=== PATIENT | male | born 1955 | race Two or more races ===

== ENCOUNTER 2020-11-14 12:45 | Outpatient (REF) | payer MEDICARE, MEDICAID, SELFPAY | END 2020-11-14 12:46 | disposition home or self-care (01) | LOC: HO.LAB 12:45 | PROVIDERS: PCP Internal Medicine; Visit Provider Internal Medicine | DX: Z20.822 Contact with and (suspected) exposure to COVID-19 (principal) | CPT/HCPCS: 36415; C9803; U0003; U0005 ==

== ENCOUNTER 2020-11-25 14:39 | Outpatient (REF) | payer MEDICARE, MEDICAID, SELFPAY | END 2020-11-25 14:40 | disposition home or self-care (01) | LOC: HO.LAB 14:39 | PROVIDERS: PCP Internal Medicine; Visit Provider Internal Medicine | DX: Z20.822 Contact with and (suspected) exposure to COVID-19 (principal) | CPT/HCPCS: 36415; C9803; U0003; U0005 ==

== ENCOUNTER → 2020-12-08 12:52 | Outpatient (BNVA) | payer MEDICARE, MEDICAID, SELFPAY | PROVIDERS: PCP Internal Medicine; Visit Provider Physician Assistant | DX: K63.5 Polyp of colon (principal); K21.9 Gastro-esophageal reflux disease without esophagitis | CPT/HCPCS: 99212 ==

== ENCOUNTER 2021-01-01 10:11 | Day surgery (SDC) | payer MEDICARE, MEDICAID, SELFPAY ==
[2020-12-24 20:48] VITALS: BMI 38.2
--- NOTE | 2020-12-31 10:00 | P.CONAN_ITS ---
HPI - Anesthesia Eval Consult details Narrative: 65yo M for Upper Endoscopy [facility] Active Problems Active Problems: All Active Problems (Updated 12/08/20 @ 14:12 by Berenice Dent PA-C) Colon polyps (Acute) Cervical stenosis of spine (Acute) BPH (benign prostatic hyperplasia) (Acute) Pure hypercholesterolemia (Acute) GERD (gastroesophageal reflux disease) (Acute) Past Medical History Medical History BPH (benign prostatic hyperplasia) Cervical stenosis of spine Colon polyps GERD (gastroesophageal reflux disease) Pure hypercholesterolemia Family History Family History Father Diabetes Mother Hypertension Maternal Grandmother Diabetes Paternal Grandmother Stroke Surgical History Surgical History History of appendectomy History of bunionectomy History of umbilical hernia repair Social History Social History Household Members: Family Alcohol intake: current Alcohol intake frequency: holidays/special occasions only Smoking Status: Never smoker Current occupational status: retired [employer] Allergies Allergy/AdvReac Type Severity Reaction Status Date / Time No Known Allergies Allergy Verified 12/01/20 13:06 Home Medications Medication Instructions Recorded Confirmed Last Taken Type cetirizine 10 mg tablet 10 mg PO BID 07/24/20 12/24/20 Unknown History timolol maleate 0.5 % eye drops 1 drp OPHTHALMIC (EYE) DAILY 07/24/20 12/24/20 Unknown History tamsulosin 0.4 mg capsule 0.4 mg PO BEDTIME 12/01/20 12/24/20 Unknown History Exam Exam Date and Time: December 31, 2020 1000 Height,Weight and Vital Signs: Height 6 ft Weight 127.913 kg Assessment and Plan Assessment Anesthesia Assessment: Chart Reviewed
[2021-01-01 10:41] VITALS: BP 141/89; PULSE 67; RESP 18; TEMP 36.4; O2SAT 99
[2021-01-01] MEDS: Lactated Ringers 1,000 ML 100 ML IVCONT (11:00)
--- NOTE | 2021-01-01 15:29 | MHC.SHP ---
Pre-Procedural Eval Section B Chief Complaint: reflux disease Relevant Family History (Specify if Yes): No Relevant Social History: None Present Medications: see Short Stay Collaborative assessment Medical History: Significant History (BPH (benign prostatic hyperplasia) Cervical stenosis of spine Colon polyps GERD (gastroesophageal reflux disease) Pure hypercholesterolemia) History of Previous Operations: Relevant previous surgery/procedure and date(s) (History of appendectomy History of bunionectomy History of umbilical hernia repair) Allergies: Allergies Allergy/AdvReac Type Severity Reaction Status Date / Time No Known Allergies Allergy Verified 12/01/20 13:06 Review of Systems Sugical H&P ROS: Negative: Constitution, Cardiovascular, Respiratory, Neurological, Psychiatric, Hem-Onc, Allergic/Immunologic, Gastrointestinal, Genitourinary, Musculoskeletal, Integumentary, Endocrine and Eyes/Ears/Nose/Throat Exam Surgical H&P Exam: Normal: HEENT, Normal: Heart, Normal: Lungs, Normal: Extremities, Normal: Abdomen, Normal: Skin and Normal: Neurological Plan Diagnosis/Plan: Unchanged I have reviewed the history and physical and performed a pertinent physical examination on my patient. No changes have occurred unless specified.
--- NOTE | 2021-01-01 15:32 | PM.OP ---
Brief Operative Note Date of Service: 01/01/21 Pre-op diagnosis: GERD, Post-op diagnosis: same Procedure: see op note Surgeon: Kecia Leal MD Anesthesia: MAC Estimated blood loss (mL): 0 Condition: stable Disposition: PACU
--- NOTE | 2021-01-01 15:32 | W.PM.OPN ---
Operative Note Operative Note Date of Service: 01/01/21 Narrative: Procedure Description: EGD FLEXIBLE TRANSORAL UPPER GASTROINTESTINAL ENDOSCOPY UPPER ENDOSCOPY Consent: Indications for the procedure and potential complications of bleeding, perforation, reaction to medications and missed diagnosis were discussed with the patient and informed consent was obtained. Instrument: Olympus GIF H 190 J mid size upper endoscope Monitoring: Vital signs and clinical assessment, continuous EKG monitoring, Pulse oximetry, Carbon Dioxide monitoring and blood pressure monitoring were done throughout the procedure. Procedure: The patient was placed in the left lateral decubitis position and pre-procedure medications were administered and a bite block was placed. The endoscope was inserted into the mouth and advanced under direct vision to the third part of duodenum. A careful inspection was made as the upper endoscope was withdrawn including a retroflexed examination of the proximal stomach; Findings and interventions are described below. Findings: Larynx:normal Esophagus: GE junction at 38 cm, diaphragm hiatus at 40 cm, 2 cm sliding hiatal hernia noted, rando esophagus bx taken Stomach: Patchy gastric erythema [place] in proximal body and fundus. Biopsies were obtained. Grade 2 flap valve on retroflexed examination of the cardia. Duodenum: Normal bulb and descending duodenum Intervention: Biopsies as noted above Impression/Findings: hiatal hernia gastritis PLAN: await bx, if h pylori pos then treat check nsaid hx consider changing PPI if current one not working
[2021-01-01 15:54] VITALS: BP 105/68; PULSE 91; RESP 20; TEMP 36.5; O2SAT 94
[2021-01-01 16:09] VITALS: BP 108/77; PULSE 90; RESP 20; O2SAT 97
[2021-01-01 16:23] VITALS: BP 122/69; PULSE 79; RESP 20; O2SAT 98
== END 2021-01-01 17:20 | disposition home or self-care (01) ==
PROVIDERS: PCP Internal Medicine; Visit Provider Internal Medicine Gastroenterology
PROC: 0DJ08ZZ Inspection of Upper Intestinal Tract, Via Natural or Artificial Opening Endoscopic (ICD-10-PCS; CPT 43235; principal; 2021-01-01 14:10)
DX: K21.00 Gastro-esophageal reflux disease with esophagitis, without bleeding (principal); K29.50 Unspecified chronic gastritis without bleeding; B96.81 Helicobacter pylori [H. pylori] as the cause of diseases classified elsewhere; K44.9 Diaphragmatic hernia without obstruction or gangrene; Z79.899 Other long term (current) drug therapy
CPT/HCPCS: 43239; 88305; 88342

== ENCOUNTER → 2021-01-30 11:08 | Outpatient (BNVA) | payer MEDICARE, MEDICAID, SELFPAY | PROVIDERS: PCP Internal Medicine; Visit Provider Internal Medicine Gastroenterology | DX: R10.13 Epigastric pain (principal) | CPT/HCPCS: 99212 ==

== ENCOUNTER 2021-03-03 07:48 | Outpatient (REF) | payer MEDICARE, MEDICAID, SELFPAY ==
--- NOTE | ~2021-03-03 | XR_ITS ---
EXAMINATION: XR KNEE, LEFT CLINICAL INFORMATION: Pain. COMPARISON: None TECHNIQUE: Four views of the left knee. FINDINGS: The tricompartment joint space is maintained normal. There is tiny spurs seen along the inferior patella and medial anterior femoral condyle. No loose bodies or bony erosive changes seen. No visible acute fracture, dislocation or lytic process seen. The soft tissues are normal. XR/XR knee LT 4V IMPRESSION: Unremarkable left knee exam.
[2021-03-03 09:07] LABS: Alanine Aminotransferase 30 U/L (0-40); Albumin Level 4.1 g/dL (3.5-5.0); Alkaline Phosphatase 76 U/L (39-117); Anion Gap 11 (12-20); Aspartate Amino Transferase 32 U/L (5-37); Bilirubin Total 0.8 mg/dL (0.0-1.0); Blood Urea Nitrogen 12 mg/dL (9-16); Calcium 9.3 mg/dL (8.4-10.2); Carbon Dioxide 28 mmol/L (22-29); Chloride 107 mmol/L (96-108); Cholesterol 209 mg/dL; Estimated Glomerular Filt Rate > 60; Glucose Fasting 104 mg/dL (60-99); HDL Cholesterol 55 mg/dL; LDL Cholesterol Calculated 135 mg/dl; Sodium 142 mmol/L (135-145); Total Protein 6.7 g/dL (6.5-8.0); Triglycerides 98 mg/dL
[2021-03-03 09:55] LABS: PSA,Total (Free>4and<10) 2.77 ng/mL (0.00-4.00)
== END 2021-03-03 07:49 | disposition home or self-care (01) ==
LOC: HO.LAB 07:48
PROVIDERS: Absent Provider Internal Medicine; PCP Internal Medicine; Visit Provider Nurse Practitioner Family
DX: N40.0 Benign prostatic hyperplasia without lower urinary tract symptoms (principal); E78.5 Hyperlipidemia, unspecified; E78.00 Pure hypercholesterolemia, unspecified; M25.562 Pain in left knee; Z12.5 Encounter for screening for malignant neoplasm of prostate
CPT/HCPCS: 36415; 73564; 80053; 80061; 84153

== ENCOUNTER 2021-03-18 14:48 | Outpatient (REF) | payer MEDICARE, MEDICAID, SELFPAY | END 2021-03-18 14:49 | disposition home or self-care (01) | LOC: HO.LAB 14:48 | PROVIDERS: PCP Internal Medicine; Visit Provider Internal Medicine | DX: Z20.822 Contact with and (suspected) exposure to COVID-19 (principal) | CPT/HCPCS: C9803; U0003; U0005 ==

== ENCOUNTER 2021-06-08 09:01 | Outpatient (REF) | payer MEDICARE, MEDICAID, SELFPAY ==
--- NOTE | ~2021-06-08 | XR_ITS ---
EXAMINATION: XR KNEE, RIGHT CLINICAL INFORMATION: Knee pain. COMPARISON: 05/25/2016 x-ray. TECHNIQUE: 4 views of the right knee. FINDINGS: Normal alignment. Small osteophyte in the medial femoral condyle. Small lateral osteophyte. Joint spaces are maintained. No fracture or dislocation. No significant effusion. XR/XR knee RT 2V IMPRESSION: Small degenerative marginal osteophytes, described above. No visible acute findings.
[2021-06-08 10:21] LABS: MANUAL DIFF FLAG NO
[2021-06-08 10:28] LABS: Basophils Percent Auto 0.2 % (0-2); Eosinophils Absolute Auto 0.3 X10*3/uL (0.0-0.4); Eosinophils Percent Auto 4.6 % (0-4); Hematocrit 37.6 % (42-52); Hemoglobin 12.7 g/dl (14.0-18.0); Imm Gran Abs Auto 0.01 X10*3/uL (0.00-0.03); Imm Gran Pct Auto 0.2 % (0.0-0.4); Lymphocytes Absolute Auto 1.9 X10*3/uL (1.2-4.9); Lymphocytes Percent Auto 31.9 % (20-40); Mean Corpuscular HGB Conc 33.8 g/dl (31.0-36.0); Mean Corpuscular Hemoglobin 29.3 pg (27.0-33.0); Mean Corpuscular Volume 86.6 fL (80-98); Monocytes Absolute Auto 0.5 X10*3/uL (0.1-1.2); Monocytes Percent Auto 8.8 % (2-11); Neutrophils Absolute Auto 3.2 X10*3/uL (2.0-8.3); Neutrophils Percent Auto 54.3 % (45-73); Platelet Count 184 X10*3/uL (160-400); Red Blood Count 4.34 X10*6/uL (4.60-5.80); White Blood Count 5.9 X10*3/uL (4.8-10.8)
[2021-06-08 11:16] LABS: PSA,Total (Free>4and<10) 3.47 ng/mL (0.00-4.00)
[2021-06-08 11:17] LABS: Alanine Aminotransferase 21 U/L (0-40); Albumin Level 4.1 g/dL (3.5-5.0); Alkaline Phosphatase 73 U/L (39-117); Anion Gap 12 (12-20); Aspartate Amino Transferase 22 U/L (5-37); Bilirubin Total 0.7 mg/dL (0.0-1.0); Blood Urea Nitrogen 10 mg/dL (9-16); Calcium 9.3 mg/dL (8.4-10.2); Carbon Dioxide 25 mmol/L (22-29); Chloride 109 mmol/L (96-108); Cholesterol 212 mg/dL; Estimated Glomerular Filt Rate > 60; Glucose Fasting 98 mg/dL (60-99); HDL Cholesterol 53 mg/dL; LDL Cholesterol Calculated 140 mg/dl; Potassium 4.3 mmol/L (3.3-5.1); Sodium 142 mmol/L (135-145); Triglycerides 99 mg/dL
[2021-06-11 18:11] LABS: Vitamin D 25-OH, D2 <4 ng/mL; Vitamin D 25-OH, D3 21 ng/mL; Vitamin D 25-OH, Total 21 ng/mL (30-100)
== END 2021-06-08 09:02 | disposition home or self-care (01) ==
LOC: HO.LAB 09:01
PROVIDERS: PCP Internal Medicine; Visit Provider Internal Medicine
DX: Z12.5 Encounter for screening for malignant neoplasm of prostate (principal); E78.00 Pure hypercholesterolemia, unspecified; D64.9 Anemia, unspecified; K21.9 Gastro-esophageal reflux disease without esophagitis; E55.9 Vitamin D deficiency, unspecified; E78.5 Hyperlipidemia, unspecified; M25.561 Pain in right knee
CPT/HCPCS: 36415; 73560; 80053; 80061; 82306; 84153; 85025

== ENCOUNTER 2021-08-31 10:45 | Outpatient (REF) | payer MEDICARE, MEDICAID, SELFPAY ==
[2021-09-01 15:32] LABS: H Pylori Breath Test Positive (Negative)
== END 2021-08-31 10:46 | disposition home or self-care (01) ==
LOC: HO.LAB 10:45
PROVIDERS: PCP Internal Medicine; Referring Provider Internal Medicine; Visit Provider Internal Medicine Gastroenterology
DX: K21.9 Gastro-esophageal reflux disease without esophagitis (principal); A04.8 Other specified bacterial intestinal infections
CPT/HCPCS: 36415; 83013; 99212

== ENCOUNTER 2021-09-02 07:17 | Outpatient (REF) | payer MEDICARE, MEDICAID, SELFPAY ==
[2021-09-02 08:47] LABS: Alanine Aminotransferase 18 U/L (0-40); Albumin Level 4.1 g/dL (3.5-5.0); Alkaline Phosphatase 74 U/L (39-117); Anion Gap 13 (12-20); Aspartate Amino Transferase 18 U/L (5-37); Bilirubin Total 0.4 mg/dL (0.0-1.0); Blood Urea Nitrogen 10 mg/dL (9-16); Calcium 9.3 mg/dL (8.4-10.2); Carbon Dioxide 27 mmol/L (22-29); Chloride 108 mmol/L (96-108); Cholesterol 199 mg/dL; Estimated Glomerular Filt Rate > 60; Glucose Fasting 102 mg/dL (60-99); HDL Cholesterol 50 mg/dL; LDL Cholesterol Calculated 136 mg/dl; Potassium 4.5 mmol/L (3.3-5.1); Sodium 143 mmol/L (135-145); Triglycerides 68 mg/dL
== END 2021-09-02 07:18 | disposition home or self-care (01) ==
LOC: HO.LAB 07:17
PROVIDERS: PCP Internal Medicine; Visit Provider Internal Medicine
DX: R10.13 Epigastric pain (principal); E78.5 Hyperlipidemia, unspecified
CPT/HCPCS: 36415; 80053; 80061

== ENCOUNTER 2022-02-11 07:03 | Outpatient (REF) | payer MEDICARE, MEDICAID, SELFPAY ==
[2022-02-11 07:24] LABS: MANUAL DIFF FLAG NO
[2022-02-11 07:31] LABS: Basophils Percent Auto 0.4 % (0-2); Eosinophils Absolute Auto 0.3 X10*3/uL (0.0-0.4); Eosinophils Percent Auto 5.4 % (0-4); Hematocrit 35.8 % (42.0-52.0); Hemoglobin 12.3 g/dl (14.0-18.0); Imm Gran Abs Auto 0.02 X10*3/uL (0.00-0.03); Imm Gran Pct Auto 0.4 % (0.0-0.4); Lymphocytes Absolute Auto 2.3 X10*3/uL (1.2-4.9); Lymphocytes Percent Auto 43.5 % (20-40); Mean Corpuscular HGB Conc 34.4 g/dl (31.0-36.0); Mean Corpuscular Hemoglobin 29.6 pg (27.0-33.0); Mean Corpuscular Volume 86.1 fL (80.0-98.0); Mean Platelet Volume 10.3 fL (9.4-12.4); Monocytes Absolute Auto 0.5 X10*3/uL (0.1-1.2); Neutrophils Absolute Auto 2.1 x10*3/uL (2.0-8.3); Neutrophils Percent Auto 40.3 % (45-73); Platelet Count 181 X10*3/uL (160-400); Red Blood Count 4.16 X10*6/uL (4.60-5.80); Red Cell Distribution Width 14.4 % (11.0-16.0); White Blood Count 5.2 X10*3/uL (4.8-10.8)
[2022-02-11 07:51] LABS: Alanine Aminotransferase 18 U/L (0-40); Albumin Level 4.1 g/dL (3.5-5.0); Alkaline Phosphatase 74 U/L (39-117); Anion Gap 12 (12-20); Aspartate Amino Transferase 20 U/L (5-37); Bilirubin Total 0.7 mg/dL (0.0-1.0); Blood Urea Nitrogen 11 mg/dL (9-16); Calcium 9.5 mg/dL (8.4-10.2); Carbon Dioxide 25 mmol/L (22-29); Chloride 108 mmol/L (96-108); Cholesterol 189 mg/dL; Estimated Glomerular Filt Rate > 60; Glucose Fasting 103 mg/dL (60-99); HDL Cholesterol 47 mg/dL; LDL Cholesterol Calculated 132 mg/dl; Potassium 4.1 mmol/L (3.3-5.1); Sodium 141 mmol/L (135-145); Total Protein 6.9 g/dL (6.5-8.0); Triglycerides 53 mg/dL
[2022-02-11 08:11] LABS: Vitamin D 25-OH Total 20.3 ng/mL (>30)
== END 2022-02-11 07:04 | disposition home or self-care (01) ==
LOC: HO.LAB 07:03
PROVIDERS: PCP Internal Medicine; Visit Provider Internal Medicine
DX: E66.9 Obesity, unspecified (principal); Z68.30 Body mass index [BMI] 30.0-30.9, adult; E55.9 Vitamin D deficiency, unspecified
CPT/HCPCS: 36415; 80053; 80061; 82306; 85025

== ENCOUNTER 2022-02-12 11:14 | Outpatient (REF) | payer MEDICARE, MEDICAID, SELFPAY ==
--- NOTE | ~2022-02-12 | XR_ITS ---
EXAMINATION: XR KNEE, RIGHT CLINICAL INFORMATION: Pain COMPARISON: Previous x-ray May 2021 TECHNIQUE: Three views of the right knee. FINDINGS: Bone alignment is normal. No fracture or dislocation is seen. There is mild degenerative meniscal calcification. Joint spaces are otherwise normal. There is no joint effusion. XR/XR knee RT 3V IMPRESSION: Degenerative meniscal calcification.
== END 2022-02-12 11:15 | disposition home or self-care (01) ==
LOC: HO.XRAY 11:14
PROVIDERS: PCP Internal Medicine; Visit Provider Internal Medicine
DX: M25.561 Pain in right knee (principal); M23.306 Other meniscus derangements, unspecified meniscus, right knee
CPT/HCPCS: 73562

== ENCOUNTER 2022-02-26 17:00 | Emergency (ER) | payer MEDICARE, MEDICAID, SELFPAY ==
[2022-02-26 17:03] VITALS: BP 128/85; PULSE 95; RESP 16; TEMP 36.1; O2SAT 97; BMI 31.4
--- NOTE | 2022-02-26 18:34 | ED.WOUNDLAC ---
HPI - Wound/Laceration General Chief Complaint: Wound/Laceration Stated Complaint: L thumb lac Time Seen by Provider: 02/26/22 18:33 Source: patient Mode of arrival: ambulatory Limitations: no limitations History of Present Illness HPI narrative: 67 y/o male presents to the ER for evaluation of a left thumb laceration. He was cutting sheet rock prior to arrival when he missed and hit the lateral aspect of his left thumb. He has excessive bleeding initially and came to the ER for evaluation of possible stitches. He is able to fully bend and extend the thumb, he denies any numbness or weakness. He is not on any anticoagulation or aspirin. Onset (ago): hour(s) Extremity Location: left: hand (Thumb) Place: home Patient tetanus UTD: No Context: accidental Associated symptoms: pain and other (Bleeding) Treatments prior to arrival: bandage Related Data Home Medications Medication Instructions Recorded Confirmed timolol maleate 0.5 % eye drops 0 drp OPHTHALMIC (EYE) 08/31/21 02/03/22 Previous Rx's Medication Instructions Recorded cholecalciferol (vitamin D3) 25 25 mcg PO DAILY 90 Days #90 cap 02/03/22 mcg (1,000 unit) capsule pantoprazole 40 mg tablet,delayed 40 mg PO DAILY 90 Days #90 tab 02/03/22 release Allergies Allergy/AdvReac Type Severity Reaction Status Date / Time No Known Allergies Allergy Verified 02/26/22 17:08 Review of Systems Review of Systems: Constitutional: No Fever, No Chills ENT/Mouth: No sore throat, No Rhinorrhea, No Swallowing Difficulty, +Tongue laceration, No dental trauma Respiratory: No Cough, No Sputum Gastrointestinal: No Nausea, No Vomiting Musculoskeletal: No joint pain, No Myalgias Skin: No Skin Lesions, No rash Neuro: No Weakness, No Numbness, No Dizziness, No Headache Psych: + Anxiety/Panic, No Depression Heme/Lymph: No Bruising PMFSH Past Medical History Medical History Abdominal distention BPH (benign prostatic hyperplasia) Cervical stenosis of spine Class 1 obesity with body mass index (BMI) of 30.0 to 30.9 in adult Colon polyps GERD (gastroesophageal reflux disease) Hypovitaminosis D Left knee pain Pure hypercholesterolemia Right knee pain Surgical History History of appendectomy History of bunionectomy History of esophagogastroduodenoscopy (EGD) History of umbilical hernia repair Family History Family History Father Diabetes Mother Hypertension Maternal Grandmother Diabetes Paternal Grandmother Stroke Social History Social History Household Members: Family Household Members Other:: lives with mother Housing: House Alcohol intake: current Alcohol intake frequency: holidays/special occasions only Alcohol type: beer Patient Tobacco Use Status: Never used Tobacco e-Cigarette/Vaping Use: Never Used Second Hand Smoke Exposure: No Advance Directives: No Advance Directives Information Provided: No service: No Current occupational status: retired Cognitive needs: No Hearing needs: No Vision needs: No Physical Exam Vital Signs: Vital Signs: Last Vital Signs Temp 97 F 02/26/22 17:03 Pulse 95 02/26/22 17:03 Resp 16 02/26/22 17:03 BP 128/85 02/26/22 17:03 Pulse Ox 97 02/26/22 17:03 BMI result Body Mass Index 31.4 Appearance: Alert. Oriented X3. No acute distress. HEENT: normal inspection CVS: Normal heart rate and rhythm. Pulses normal. Respiratory: No respiratory distress. Skin: Skin warm and dry. Normal skin color. Normal skin turgor. No rashes. Extremities: left thumb with 4 cm linear, superficial laceration to the lateral aspect of the thumb, active bright red losing from the proximal portion of the wound, normal range of motion of the digit, normal sensation, less than 2nd cap refill. Neuro: Oriented X 3. Nonfocal. Course Course Course Narrative: 67-year-old male presents to the ER for evaluation of a superficial laceration to his left thumb. Laceration is approximately 4 cm long, superficial, active bright red blood oozing from the proximal aspect, most likely small arteriolel is actively bleeding. Direct pressure was applied with some improvement. Area was anesthetized with 2% lidocaine with good effect and sutures were placed to approximate wound edges and adequate hemostasis was achieved. Patient tolerated procedure well. Wound care discussed, patient is stable for discharge home. Procedures Laceration Laceration 1: Site: hand Side (If applicable): left Size (cm): 4 Description: linear Depth: simple, single layer Local Anesthetic: lidocaine 2% Amount of anesthesia used (mL): 4 Pre-repair: wound explored, irrigated extensively and deep structures intact Skin layer closed with: nylon Size (cm): 4-0 Number of sutures: 6 Technique: simple, interrupted Discharge Plan Discharge Clinical Impression: Laceration of left thumb Patient Disposition: Home, Self-Care Instructions: Finger Laceration (ED) Additional Instructions: You will need your stitches out in 7- 10 days. See you doctor for this or come back to the ER and we will remove them. Do not get wet for 24 hours, after that you can briefly wash with soap and water then pat dry. Use bacitracin 2x per day. Keep wound clean and covered. Allow open to air for a few hours per day. Do not submerge in water, no swimming, no dishes. If you develop signs of infection including increased pain, swelling, redness or drainage of pus come back to the ER for further evaluation. Prescriptions: No Action cholecalciferol (vitamin D3) 25 mcg (1,000 unit) capsule 25 mcg PO DAILY 90 Days Qty: 90 3RF pantoprazole 40 mg tablet,delayed release (DR/EC) 40 mg PO DAILY 90 Days Qty: 90 3RF timolol maleate 0.5 % drops 0 drp ophthalmic (eye) 0RF Interventions: ED Discharge Assessment Last Done: 02/26/22 19:30 Discharge Date/Time: 02/26/22 19:31 Print Language: Bengali
[2022-02-26] MEDS: Diphth,Pertus(ACell),Tet Adult 0.5 ML SYRINGE IM (19:22)
[2022-02-26] MEDS: Lidocaine HCl 2 % MPF 5 ML VIAL SUBCUT (19:22)
== END 2022-02-26 19:31 | disposition home or self-care (01) ==
PROVIDERS: Emergency Provider Internal Medicine; PCP Internal Medicine
DX: S61.012A Laceration without foreign body of left thumb without damage to nail, initial encounter (principal); W45.8XXA Other foreign body or object entering through skin, initial encounter; Y93.9 Activity, unspecified; Y92.9 Unspecified place or not applicable; Y99.9 Unspecified external cause status
CPT/HCPCS: 12002; 90471; 90715; 99282; 99284

== ENCOUNTER 2022-03-01 08:46 | Outpatient (REF) | payer MEDICARE, MEDICAID, SELFPAY ==
--- NOTE | ~2022-03-01 | US_ITS ---
EXAMINATION: US COMPLETE ABDOMEN WITH LIVER ELASTOGRAPHY CLINICAL INFORMATION: COMPARISON: None. TECHNIQUE: Real-time imaging of the abdominal viscera. Noninvasive ultrasound liver fibrosis assessment is performed using Meryl ElastPQ point quantification shear wave elastography (2D-SWE) with a C5-2 MHz transducer. Multiple elastography samples are obtained. FINDINGS: PANCREAS: Normal. ABDOMINAL AORTA: The proximal, middle, and distal aortic segments are normal in caliber. INFERIOR VENA CAVA: Visualized portions are normal. LIVER: Normal. The liver demonstrates normal size, contour and echogenicity. No focal lesion or intrahepatic biliary duct dilatation. The right lobe measures 14 cm in length. The left lobe measures 10 cm in length. Portal flow is normal/hepatopedal Shear wave liver elastography median stiffness is 1.5 m/s (reference: normal median stiffness is 1.3 m/s or less). IQR/median stiffness to assess sampling precision is 0.12 (reference: good quality data set is IQR/median stiffness of 0.15 or less). GALLBLADDER: Normal. The gallbladder is physiologically distended without evidence of stones, sludge, polyps, wall thickening or pericholecystic fluid. COMMON BILE DUCT: Normal in caliber measuring 0.5 cm in diameter. RIGHT KIDNEY: Normal. No hydronephrosis. No renal calculi or focal parenchymal lesions. The kidney measures 12.3 cm in maximum dimension. LEFT KIDNEY: Normal. No hydronephrosis. No renal calculi or focal parenchymal lesions. The kidney measures 12.5 cm in maximum dimension. SPLEEN: Normal. The spleen measures 9.1 cm in maximum dimension. FREE FLUID: None. US/US abdomen comp w elastography IMPRESSION: 1. Impression: Unremarkable exam. 2. Liver elastography: Adequate liver sampling. In the absence of other known clinical signs, rules out compensated advanced chronic liver disease. REFERENCE: Society of Radiologists in Ultrasound Liver Stiffness Thresholds (2020): LIVER STIFFNESS THRESHOLDS: *Liver Stiffness equal or less than 1.3 m/s: High probability of being normal. *Liver Stiffness less than 1.7 m/s: In the absence of other known clinical signs, rules out compensated advanced chronic liver disease. *Liver Stiffness 1.7-2.1 m/s: Suggestive of compensated advanced chronic liver disease but need further test for confirmation. *Liver Stiffness over 2.1 m/s: Rules in compensated advanced chronic liver disease. *Liver Stiffness over 2.4 m/s: Suggestive of clinically significant portal hypertension. QUALITY OF DATA SET: *IQR/Median value equal or less than 0.15 implies a quality data set. *IQR/Median value over 0.15 implies a poor quality data set. SIGNIFICANT CHANGE FROM PRIOR EXAM: Significant change if liver stiffness measurement is 10% or greater from prior exam. OTHER CONSIDERATIONS: The stage of liver fibrosis may be overestimated in the setting of acute hepatitis, liver inflammation, elevated liver function tests, hepatic vascular congestion, obstructive cholestasis, non-fasting state, and infiltrative diseases such as amyloidosis and lymphoma. In some patients with NAFLD, the liver stiffness thresholds for compensated advanced chronic liver disease may be lower. In causes other than viral hepatitis and NAFLD, liver stiffness thresholds are not well established.
== END 2022-03-01 08:47 | disposition home or self-care (01) ==
LOC: HO.US 08:46
PROVIDERS: Visit Provider Internal Medicine
DX: R14.0 Abdominal distension (gaseous) (principal)
CPT/HCPCS: 76705; 76981

== ENCOUNTER 2022-03-08 09:28 | Emergency (ER) | payer MEDICARE, MEDICAID, SELFPAY ==
[2022-03-08 09:37] VITALS: BP 130/80; PULSE 70; RESP 16; TEMP 36.6; O2SAT 96; BMI 31.4
--- NOTE | 2022-03-08 09:43 | ED_ITS ---
HPI - General Adult General Chief complaint: Wound/Laceration Stated complaint: Suture Removal Time Seen by Provider: 03/08/22 09:43 Source: patient Mode of arrival: ambulatory Limitations: no limitations History of Present Illness HPI narrative: Patient is a 67 year old male presenting to the emergency department today for a suture removal. Patient states that he was doing drywall when he cut his left thumb on 02/26 and he got sutures placed here. Patient denies any dizziness, lightheadedness, abdominal pain, nausea, vomiting, fever, chills, blurry vision, double vision, loss of vision, chest pain, difficulty breathing, shortness of breath, back pain, night sweats, pain with urination, increased urinary frequency, increased urinary urgency, blood in his urine or stool, syncope or a near syncopal episode, bowel incontinence, bladder incontinence, bowel retention, bladder retention, or any other complaints at this time. Patient denies any discharge from the sutured area. Onset (ago): day(s) Relieving factors: none Exacerbating factors: none Associated symptoms: denies other symptoms Treatments prior to arrival: none Related Data Home Medications Medication Instructions Recorded Confirmed timolol maleate 0.5 % eye drops 0 drp OPHTHALMIC (EYE) 08/31/21 02/03/22 Previous Rx's Medication Instructions Recorded cholecalciferol (vitamin D3) 25 25 mcg PO DAILY 90 Days #90 cap 02/03/22 mcg (1,000 unit) capsule pantoprazole 40 mg tablet,delayed 40 mg PO DAILY 90 Days #90 tab 02/03/22 release Allergies Allergy/AdvReac Type Severity Reaction Status Date / Time No Known Allergies Allergy Verified 03/08/22 09:39 Review of Systems Constitutional: Constitutional: Reports no additional constitutional complaints, Denies chills, Denies fever(s) and Denies night sweats Eyes: Eyes: Reports no additional eye complaints, Denies blurry vision, Denies change in vision, Denies diplopia, Denies eye discharge, Denies loss of vision and Denies eye pain ENT: Denies dizziness Cardiovascular: Cardiovascular: Reports no additional cardiovascular complaints, Denies chest pain, Denies lightheadedness, Denies Loss of Consciousness and Denies dyspnea Respiratory: Respiratory: Reports no additional respiratory complaints and Denies dyspnea Gastrointestinal: Gastrointestinal: Reports no additional gastrointestinal complaints, Denies abdominal pain, Denies melena, Denies hematochezia, Denies change in bowel habits and Denies change in stool character Genitourinary: Genitourinary: Reports no additional male genitourinary complaints, Denies hematuria, Denies oliguria, Denies difficulty urinating, Denies dysuria, Denies urinary frequency, Denies urinary hesitancy, Denies urinary incontinence and Denies urinary urgency Musculoskeletal: Musculoskeletal: Reports no additional musculoskeletal complaints, Denies numbness and Denies tingling Integumentary/Breasts: Comments: 6 4-[address] on the thumb Neurologic: Denies dizziness, Denies loss of vision, Denies numbness and Denies tingling Psychiatric: Psychiatric: Reports no additional psychiatric complaints Endocrine: Endocrine: Reports no additional endocrine complaints Hematologic/Lymphatic: Hematologic/Lymphatic: Reports no additional hematologic/lymphatic complaints Allergic/Immunologic: Allergic/Immunologic: Reports no additional allergic/immunologic complaints [facility] Past Medical History Attestation statement: The following information was validated with the patient. Source: old records reviewed Medical History Abdominal distention BPH (benign prostatic hyperplasia) Cervical stenosis of spine Class 1 obesity with body mass index (BMI) of 30.0 to 30.9 in adult Colon polyps GERD (gastroesophageal reflux disease) Hypovitaminosis D Left knee pain Pure hypercholesterolemia Right knee pain Surgical History History of appendectomy History of bunionectomy History of esophagogastroduodenoscopy (EGD) History of umbilical hernia repair Family History Family History Father Diabetes Mother Hypertension Maternal Grandmother Diabetes Paternal Grandmother Stroke Social History Social History Household Members: Family Household Members Other:: lives with mother Housing: House Alcohol intake: current Alcohol intake frequency: holidays/special occasions only Alcohol type: beer Patient Tobacco Use Status: Never used Tobacco e-Cigarette/Vaping Use: Never Used Second Hand Smoke Exposure: No Advance Directives: No Advance Directives Information Provided: No service: No Current occupational status: retired Cognitive needs: No Hearing needs: No Vision needs: No Physical Exam ED Vital Signs: Vital Signs - 24 hr 03/08/22 09:37 Temperature 98 F Pulse Rate 70 Respiratory Rate 16 Blood Pressure 130/80 Pulse Oximetry 96 BMI result Body Mass Index 31.4 Const General: cooperative, no acute distress, alert and awake Nutritional Appearance: well nourished Orientation/consciousness: patient oriented x3 Limitations: no limitations HENMT Head: Yes normal to inspection and Yes atraumatic Ears: hearing grossly normal bilaterally and external ears normal General nose exam: Normal external nose present, no nasal discharge noted and no epistaxis Face and sinus: Yes normal facial exam, No abrasion and No laceration Mouth: Normal oral and palatal mucosa present, no drooling and no muffled voice Eyes General: appearance normal, both eyes and all related structures Periorbital: periorbital findings normal Eyelids: Yes eyelids normal Conjunctivae: conjunctivae normal Pupils: Equal, round and reactive pupils present EOM: EOMs intact bilaterally Neck Neck: Yes normal visual inspection, Yes full ROM and Yes no lymphadenopathy Chest Chest palpation & inspection: normal inspection of the chest Resp Effort & Inspection: normal respiratory effort and able to speak in complete sentences Auscultation: clear to auscultation bilaterally Cardio Rate: regular rate Rhythm: regular rhythm GI Inspection: Yes normal to inspection Skin Other: 6 4-[address] along the medial aspect of the left thumb, no open areas, no warmth, no redness Neuro General: patient oriented x3 and moves all extremities Cranial nerves: Yes Equal, round and reactive pupils present Cognition (Neuro): normal cognition Motor exam (neuro): 5/5 motor strength present throughout Sensory Exam: Normal double simultaneous stimulation for sensation Coordination: [id number] test normal Extrem General: Yes normal to inspection, Yes full ROM and Yes capillary refill normal Psych Appearance: grossly normal Mental Status: mental status grossly normal Affect: normal affect Attitude: cooperative Thought process: Normal thought process present Thought content: Normal thought content present Insight: Good insight present (Psych) Procedures Procedure Narrative Procedure Narrative: 6 4-0 nylon sutures removed from the left thumb, without incident. Medical Decision Making MDM Narrative Medical decision making narrative: Patient is a 67 year old male presenting to the emergency department today for suture removal. Patient's physical exam showed 6 4-[address] on the medial aspect of the left thumb with no surrounding erythema, warmth, or drainage. Patient's sutures removed without incident. I explained my physical exam findings to the patient. I answered all questions asked by the patient. I stressed the importance of the patient taking his medication as prescribed. I stressed the importance of the patient following up with his primary care provider. I stressed the importance of the patient returning to the emergency department immediately if his symptoms were to worsen or if he were to develop any dizziness, shortness of breath, difficulty breathing, chest pain, blurry vision, loss of vision, nausea, vomiting, abdominal pain, fever, chills, back pain, or any other complaints. Patient verbalized agreement and understanding with this treatment plan and discharge. Differential Diagnosis Differential Diagnosis: suture removal Discharge Plan Discharge Clinical Impression: Visit for suture removal Patient Disposition: Home, Self-Care Instructions: Stitches Removal (ED) Additional Instructions: Follow up with your primary care provider. Return to the emergency department immediately if your symptoms worsen or if you develop any dizziness, shortness of breath, difficulty breathing, chest pain, blurry vision, loss of vision, nausea, vomiting, abdominal pain, fever, chills, back pain, or any other complaints. Prescriptions: No Action cholecalciferol (vitamin D3) 25 mcg (1,000 unit) capsule 25 mcg PO DAILY 90 Days Qty: 90 3RF pantoprazole 40 mg tablet,delayed release (DR/EC) 40 mg PO DAILY 90 Days Qty: 90 3RF timolol maleate 0.5 % drops 0 drp ophthalmic (eye) 0RF Referrals: Dimple Mcbride MD [Primary Care Provider] - Print Language: Bulgarian
== END 2022-03-08 09:56 | disposition home or self-care (01) ==
PROVIDERS: Emergency Provider Emergency Medicine; PCP Internal Medicine
DX: Z48.02 Encounter for removal of sutures (principal)
CPT/HCPCS: 99283

== ENCOUNTER 2022-03-09 07:43 | Outpatient (REF) | payer MEDICARE, MEDICAID, SELFPAY ==
--- NOTE | ~2022-03-09 | XR_ITS ---
EXAMINATION: XR KNEE AP STANDING CLINICAL INFORMATION: Knee pain. COMPARISON: 02/12/2022 and 06/08/2021 as well as 03/03/2021. TECHNIQUE: AP bilateral standing view of the knees was obtained. FINDINGS: AP standing view of both knees demonstrates maintenance of the medial and lateral joint space compartments bilaterally. There are meniscal calcifications present. No acute fractures appreciated. XR/XR knee standing BI IMPRESSION: Bilateral meniscal calcifications. No significant narrowing of medial and lateral joint space compartments.
== END 2022-03-09 07:44 | disposition home or self-care (01) ==
LOC: HO.HOSX 07:43
PROVIDERS: Visit Provider Physician Assistant
DX: M23.91 Unspecified internal derangement of right knee (principal)
CPT/HCPCS: 20610; 73565; 99202; J1040

== ENCOUNTER → 2022-04-30 09:32 | Outpatient (BNVA) | payer MEDICARE, MEDICAID, SELFPAY | PROVIDERS: PCP Internal Medicine; Visit Provider Internal Medicine Gastroenterology | DX: R10.9 Unspecified abdominal pain (principal) | CPT/HCPCS: 99212 ==

== ENCOUNTER → 2022-06-25 09:35 | Outpatient (BNVA) | payer MEDICARE, MEDICAID, SELFPAY | PROVIDERS: PCP Internal Medicine; Visit Provider Internal Medicine Gastroenterology | DX: Z11.0 Encounter for screening for intestinal infectious diseases (principal) | CPT/HCPCS: 83013; 99211 ==

== ENCOUNTER 2022-06-25 15:32 | Outpatient (REF) | payer MEDICARE, MEDICAID, SELFPAY | END 2022-06-25 15:33 | disposition home or self-care (01) | LOC: HO.LNP 15:32 | PROVIDERS: Visit Provider Internal Medicine Gastroenterology | DX: Z13.89 Encounter for screening for other disorder (principal) | CPT/HCPCS: 83013 ==

== ENCOUNTER 2022-06-28 | Outpatient (REF) | payer MEDICARE, MEDICAID, SELFPAY ==
[2022-06-30 14:09] LABS: H Pylori Breath Test Negative (Negative)
== END 2022-06-28 00:01 | disposition home or self-care (01) ==
LOC: HO.LNP
PROVIDERS: Visit Provider Internal Medicine Gastroenterology
DX: A04.8 Other specified bacterial intestinal infections (principal)
CPT/HCPCS: 83013

== ENCOUNTER → 2023-03-04 09:43 | Outpatient (BNVA) | payer MEDICARE, MEDICAID, SELFPAY | PROVIDERS: PCP Internal Medicine; Referring Provider Internal Medicine; Visit Provider Internal Medicine Gastroenterology | DX: K21.9 Gastro-esophageal reflux disease without esophagitis (principal); A04.8 Other specified bacterial intestinal infections | CPT/HCPCS: 99212 ==

== ENCOUNTER 2023-05-04 09:41 | Outpatient (AMB) | payer OTHER, SELFPAY ==
--- NOTE | 2023-05-04 09:42 | MHC.PC.OV ---
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 Required: No Accompanied by: Self / Same As Patient Allergies No Known Allergies Allergy (Verified 05/04/23 09:59) Medication List - Last Reconciled 05/04/23 by Dimple Wilde MD docusate sodium (Colace) 100 mg PO BID pantoprazole 40 mg PO DAILY 90 days timolol maleate 0.5% 0 drps ophthalmic (eye) Tobacco use date assessed: 05/04/23 Fall risk assessment: No Falls in past year Last assessed Fall Risk: 05/04/23 Dental Screening Dental Screen Date: 05/04/23 Did you have a dental visit in the last 12 months?: Yes Did you have a dental problem in the last 6 months where you did not have access to dental care?: No Was dental information given to patient?: Patient has dentist HPI HPI Comments History of Present Illness Details This is a 68-year-old male that comes for his physical exam. He had a colonoscopy [address] Ramsay showing tubular adenoma. As per patient he had a colonoscopy last year at [facility] showing 2 polyps which he does not know the name or help dictate were. Complains of right knee pain and will be referred to Ortho. [facility] Medical History Abdominal distention BPH (benign prostatic hyperplasia) Cervical stenosis of spine Class 1 obesity with body mass index (BMI) of 30.0 to 30.9 in adult Colon polyps GERD (gastroesophageal reflux disease) Hypovitaminosis D Left knee pain Pure hypercholesterolemia Right knee pain Surgical History History of appendectomy History of bunionectomy History of esophagogastroduodenoscopy (EGD) History of umbilical hernia repair Family History Father Diabetes Mother Hypertension Maternal Grandmother Diabetes Paternal Grandmother Stroke Social History Household Members: Family Household Members Other:: lives with mother Housing: House Alcohol intake: current Alcohol intake frequency: a few times a month Alcohol type: beer Patient Tobacco Use Status: Never used Tobacco e-Cigarette/Vaping Use: Never Used Second Hand Smoke Exposure: No service: No Current occupational status: retired 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 1. Little interest or pleasure in doing things: not at all 2. Feeling down, depressed, or hopeless: not at all 3. Trouble falling or staying asleep, or sleeping too much: not at all 4. Feeling tired or having little energy: not at all 5. Poor appetite or overeating: not at all 6. Feeling bad about yourself - or that you are a failure or have let yourself or your family down: not at all 7. Trouble concentrating on things, such as reading the newspaper or watching television: not at all 8. Moving or speaking so slowly that other people could have noticed. Or the opposite - being so fidgety or restless that you have been moving around a lot more than usual: not at all 9. Thoughts that you would be better off or of hurting yourself in some way: not at all Total score: 0 Depression Screening Interpretation: Negative 87202 - PHQ-9 Billing: Yes Source: Developed by Drs. Vitaly Wilson, Gia Reyes, Juan De Leon and colleagues, with an educational sho from [employer]. Thrive Questionnaire Date Thrive assessed: 05/04/23 I am a: Patient What is your living situation today?: I have a steady place to live Within the past 12 months, did the food you bought not last and you didn't have the money to get more?: Never true Within the past 12 months, did you worry whether your food would run out before you got money to buy more?: Never true Do you have trouble paying for medicines?: No Do you have trouble getting transportation to medical appointments?: No Do you have trouble paying your heating and electricity bill?: No Do you have trouble taking care of your child, family member or friend?: No Do you have trouble with day-to-day activities such as bathing, preparing meals, shopping, managing finances, etc.?: No Are you currently unemployed and looking for a job?: No Are you interested in more education?: No Please select the resources that you would like help with: None Currently or been in a relationship where the following occur: no concerns reported AUDIT C Alcohol Use Questionnaire (AUDIT-C) 1. How often do you have a drink containing alcohol?: 2-4 times a month 2. How many drinks containing alcohol do you have on a typical day when you are drinking?: 1 or 2 3. How often do you have six or more drinks on one occasion?: Never Total Score: 2 Score Reviewed/Action Taken: No ANNALISE-7 AMB Questionnaire ANNALISE-7 Date ANNALISE - 7 assessed: 05/04/23 Feeling nervous, anxious, or on edge: 0 = Not at all Not being able to stop or control worryin = Not at all Worrying too much about different things: 0 = Not at all Trouble relaxin = Not at all Being so restless that it is hard to sit still: 0 = Not at all Becoming easily annoyed or irritable: 0 = Not at all Feeling afraid as if something awful might happen: 0 = Not at all Total ANNALISE-7 score (0-4 normal; 5-9 mild; 10-14 moderate; 15-21 severe): 0 Source: Developed by Drs. Vitaly Wilson, Gia Reyes, Juan De Leon and colleagues, with an educational sho from [employer]. ANNALISE-7 Assessment Billing ANNALISE-7 Assessment Tool: ANNALISE-7 Assessment 14555 Review of Systems Const All systems reviewed & are unremarkable except as noted in HPI and below Eyes Reports no additional complaints, Denies change in vision and Denies other visual disturbances Card Denies chest pain at rest, Denies chest pain with activity, Denies edema, Denies irregular heart rhythm, Denies claudication, Denies dyspnea, Denies dyspnea on exertion, Denies orthopnea, Denies paroxysmal nocturnal dyspnea and Denies slow heart rate Resp Denies cough, Denies dyspnea and Denies dyspnea on exertion GI Denies abdominal pain, Denies change in bowel habits, Denies excessive flatus, Denies nausea and Denies vomiting Denies urinary hesitancy, Denies urinary incontinence and Denies urinary urgency Musc Denies abnormal gait, Denies atrophy, Denies deformity, Reports arthralgias and Denies limited range of motion Skin/Breast Denies bleeding lesions, Denies changing lesions and Denies rash Neuro Denies abnormal gait and Denies lack of coordination Physical exam (Primary Care) Vital Signs: Last Vital Signs BP 110/72 05/04/23 09:45 BMI result Body Mass Index 31.5 Tobacco/Smoking Status: Tobacco use Status Tobacco use date assessed 05/04/23 05/04/23 09:49 Patient Tobacco Use Status Never used Tobacco 05/04/23 09:49 e-Cigarette/Vaping Use Never Used 05/04/23 09:49 PHQ-9: PHQ-9 Score PHQ-9: Total score 0 05/04/23 09:49 Depression Screening Interpretation: Negative Thrive Assessment: Date of Thrive Assessment Date Thrive assessed 05/04/23 05/04/23 09:49 Currently or been in a relationship where the following occur: no concerns reported Const Orientation/consciousness: patient oriented x3 [facility] Head: Yes normal to inspection, Yes normocephalic and Yes atraumatic Ears: external ears normal Eyes General: appearance normal, both eyes and all related structures Eyelids: Yes eyelids normal Conjunctivae: conjunctivae normal Neck Neck: Yes normal visual inspection and Yes supple Resp Effort & Inspection: normal respiratory effort Auscultation: clear to auscultation bilaterally Cardio Jugular venous distension: no JVD Rate: regular rate Rhythm: regular rhythm Heart sounds: S1 normal heart sound present and S2 normal heart sound present GI Inspection: Yes normal to inspection Palpation (GI): Soft to palpation and nontender Auscultation: normal bowel sounds Skin General skin exam: no rashes or lesions noted Neuro General: patient oriented x3 and no focal motor deficits Extrem General: Yes full ROM Psych Appearance: grossly normal Assessment and Plan Assessment & Plan (1) Physical exam: Code(s): Z00.00 - Encounter for general adult medical examination without abnormal findings Plan: Repeat in a year Orders: Orders Comprehensive River. Panel Fast Today Z00.00 - Encounter for general adult medical examination without abnormal findings Lipid Panel Today Z00.00 - Encounter for general adult medical examination without abnormal findings Referrals Orthopedics Referral M23.91 - Unspecified internal derangement of right knee Gastroenterology Referral D12.6 - Benign neoplasm of colon, unspecified Coding Level of Care Code Est Pt Prev Care >65y(33401) Diagnoses Physical exam Z00.00 Additional Codes ANNALISE-7 Assessment Billing - ANNALISE-7 Assessment Tool: ANNALISE-7 Assessment [id number] ([id number]) Time Spent (min) 32
[2023-05-04 09:45] VITALS: BP 110/72; BMI 31.5
== END 2023-05-04 10:08 | disposition home or self-care (01) ==
PROVIDERS: PCP Internal Medicine; Visit Provider Internal Medicine
DX: Z00.00 Encounter for general adult medical examination without abnormal findings (principal)
CPT/HCPCS: 99397

== ENCOUNTER 2023-05-10 08:00 | Outpatient (REF) | payer OTHER, SELFPAY ==
[2023-05-10 08:20] LABS: MANUAL DIFF FLAG NO
[2023-05-10 09:01] LABS: Basophils Percent Auto 0.4 % (0-2); Eosinophils Absolute Auto 0.3 X10*3/uL (0.0-0.4); Eosinophils Percent Auto 5.2 % (0-4); Hematocrit 35.8 % (42.0-52.0); Hemoglobin 12.1 g/dl (14.0-18.0); Imm Gran Abs Auto 0.03 X10*3/uL (0.00-0.03); Imm Gran Pct Auto 0.6 % (0.0-0.4); Lymphocytes Absolute Auto 2.4 X10*3/uL (1.2-4.9); Lymphocytes Percent Auto 44.5 % (20-40); Mean Corpuscular HGB Conc 33.8 g/dl (31.0-36.0); Mean Corpuscular Hemoglobin 28.9 pg (27.0-33.0); Mean Corpuscular Volume 85.6 fL (80.0-98.0); Monocytes Absolute Auto 0.5 X10*3/uL (0.1-1.2); Monocytes Percent Auto 8.7 % (2-11); Neutrophils Absolute Auto 2.2 x10*3/uL (2.0-8.3); Neutrophils Percent Auto 40.6 % (45-73); Platelet Count 186 X10*3/uL (160-400); Red Blood Count 4.18 X10*6/uL (4.60-5.80); Red Cell Distribution Width 13.5 % (11.0-16.0); White Blood Count 5.4 X10*3/uL (4.8-10.8)
[2023-05-10 09:36] LABS: Alanine Aminotransferase 19 U/L (0-40); Albumin Level 3.9 g/dL (3.5-5.0); Alkaline Phosphatase 67 U/L (39-117); Anion Gap 15 (12-20); Aspartate Amino Transferase 19 U/L (5-37); Bilirubin Total 0.4 mg/dL (0.0-1.0); Blood Urea Nitrogen 10 mg/dL (9-16); Calcium 9.4 mg/dL (8.4-10.2); Carbon Dioxide 24 mmol/L (22-29); Chloride 109 mmol/L (96-108); Cholesterol 200 mg/dL; Estimated Glomerular Filt Rate > 60; Glucose Fasting 99 mg/dL (60-99); HDL Cholesterol 41 mg/dL; Iron 71 mcg/dL (45-160); LDL Cholesterol Calculated 143 mg/dl; Percent Iron Saturation 27 % (15-50); Potassium 3.8 mmol/L (3.3-5.1); Sodium 144 mmol/L (135-145); Total Iron Binding Capacity 262 mcg/dL (228-428); Total Protein 6.8 g/dL (6.5-8.0); Triglycerides 82 mg/dL; Unsaturated Iron Binding 191 ug/dL
[2023-05-10 09:50] LABS: PSA,Total (Free>4and<10) 3.25 ng/mL (0.00-4.00)
[2023-05-10 10:07] LABS: Vitamin B12 266 pg/mL (200-900)
== END 2023-05-10 08:01 | disposition home or self-care (01) ==
LOC: HO.LAB 08:00
PROVIDERS: PCP Internal Medicine; Visit Provider Internal Medicine
DX: Z00.00 Encounter for general adult medical examination without abnormal findings (principal); D64.9 Anemia, unspecified; Z12.5 Encounter for screening for malignant neoplasm of prostate; E53.8 Deficiency of other specified B group vitamins
CPT/HCPCS: 36415; 80053; 80061; 82607; 82746; 83540; 84153; 85025

== ENCOUNTER 2023-06-07 07:27 | Outpatient (REF) | payer OTHER, SELFPAY ==
--- NOTE | ~2023-06-07 | XR_ITS ---
X-RAYS STANDING AP VIEW X-RAY LEFT KNEE CLINICAL HISTORY: Pain. COMPARISON: AP standing view 03/09/2022. Radiograph left knee 03/03/2021. TECHNIQUE: AP bilateral standing view of the knees. AP and lateral view of the left knee. FINDINGS: AP standing view: Subtle chondrocalcinosis. No significant joint space narrowing. No marginal osteophytes or osseous erosions. AP and lateral view of the left knee: No acute fractures or malalignment. Trace joint effusion. XR/XR knee LT 2V IMPRESSION: 1. No acute fractures or malalignment. 2. Subtle bilateral chondrocalcinosis. 3. Trace joint effusion of the left knee.
--- NOTE | ~2023-06-07 | XR_ITS ---
X-RAYS STANDING AP VIEW X-RAY LEFT KNEE CLINICAL HISTORY: Pain. COMPARISON: AP standing view 03/09/2022. Radiograph left knee 03/03/2021. TECHNIQUE: AP bilateral standing view of the knees. AP and lateral view of the left knee. FINDINGS: AP standing view: Subtle chondrocalcinosis. No significant joint space narrowing. No marginal osteophytes or osseous erosions. AP and lateral view of the left knee: No acute fractures or malalignment. Trace joint effusion. XR/XR knee standing BI IMPRESSION: 1. No acute fractures or malalignment. 2. Subtle bilateral chondrocalcinosis. 3. Trace joint effusion of the left knee.
== END 2023-06-07 07:28 | disposition home or self-care (01) ==
LOC: HO.HOSX 07:27
PROVIDERS: Visit Provider Physician Assistant
DX: M17.0 Bilateral primary osteoarthritis of knee (principal)
CPT/HCPCS: 73560; 73565; 99212

== ENCOUNTER 2023-06-07 14:34 | Outpatient (AMB) | payer OTHER, MEDICAID, SELFPAY ==
--- NOTE | 2023-06-07 15:05 | MHC.OFFVIS ---
Intake Vital Signs 06/07/23 15:15 Height 6 ft Weight 232 lb BMI 31.5 Intake Visit Reasons: New prob- LT knee px/seen for rt s/p inj 02/2022 Intake Note: Igor is a 68 year old male who presents today with a evaluation for his left knee pain he was seen for his right knee back in 02/2022. No hx of PT. Hx of Alive which gave him mild relief. He states that his last injection didn't give him any relief. He states his right knee is worse than the left knee. Patient reports pain is worse when walking and using stairs. He reports having a fall a year ago which caused his pain worse. Patient states that he dose not want a injection. Allergies No Known Allergies Allergy (Verified 06/07/23 15:15) HPI New prob- LT knee px/seen for rt s/p inj 02/2022 HPI Details 68-year-old male, who is Argentine speaking, presents in the office today for an evaluation of left knee pain. He was last seen in the clinic in 02/2022 for right knee pain. He confirms the use of Aleve with mild relief. He claims the right knee is worse then the left knee. He reports an increase in pain with ambulating and use of stairs. He states he has a fall about a year ago (2021) which caused an increase in pain. He does not want to repeat the injection. Patient has a history of right knee cortisone injection in 02/2022, with no relief. Patient denies participating in physical therapy. [facility] Medical History Abdominal distention BPH (benign prostatic hyperplasia) Cervical stenosis of spine Class 1 obesity with body mass index (BMI) of 30.0 to 30.9 in adult Colon polyps GERD (gastroesophageal reflux disease) Hypovitaminosis D Left knee pain Pure hypercholesterolemia Right knee pain Surgical History History of appendectomy History of bunionectomy History of esophagogastroduodenoscopy (EGD) History of umbilical hernia repair Family History Father Diabetes Mother Hypertension Maternal Grandmother Diabetes Paternal Grandmother Stroke Social History Household Members: Family Household Members Other:: lives with mother Housing: House Alcohol intake: current Alcohol intake frequency: a few times a month Alcohol type: beer Patient Tobacco Use Status: Never used Tobacco e-Cigarette/Vaping Use: Never Used Second Hand Smoke Exposure: No service: No Current occupational status: retired 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 No ecchymosis, erythema, or joint effusion. No tenderness to palpation to the medial or lateral joint lines. Full knee extension and flexion. Crepitus felt with ROM. NVI. Assessment & Plan Assessment & Plan (1) Osteoarthritis of left knee: Code(s): M17.12 - Unilateral primary osteoarthritis, left knee Plan Mr. Carey is a 68-year-old male, who is Argentine speaking, presents in the office today for an evaluation of left knee pain. He was last seen in the clinic in 02/2022 for right knee pain. He confirms the use of Aleve with mild relief. He claims the right knee is worse then the left knee. He reports an increase in pain with ambulating and use of stairs. He states he has a fall about a year ago (2021) which caused an increase in pain. He does not want to repeat the injection. Patient has a history of right knee cortisone injection in 02/2022, with no relief. Patient denies participating in physical therapy. We discussed the role of repeat injections while in the office today. He has declined at this time. I educated him on Gel injections and we have agreed to hold off at this time. I discussed the role of physical therapy with the patient and he has agreed to attend at this time. Follow up will be PRN, or sooner if needed. X-rays of the left knee which were obtained while in the office today and were reviewed by me, Gladys Leonard PA-C, revealed osteoarthritis. Orders: Orders XR knee LT 2V 06/07/23 M25.569 - Pain in unspecified knee XR knee standing BI 06/07/23 M25.569 - Pain in unspecified knee PT Evaluation and Treatment 06/07/23 M17.0 - Bilateral primary osteoarthritis of knee Patient Instructions: Scribed for Gladys Leonard PA-C by Norma García medical record librarians teacher, on 06/07/2023 at 2:36 pm, EST. Coding Level of Care Code Est Pt Level 4 (60523) Diagnoses Osteoarthritis of left knee M17.12
[2023-06-07 15:15] VITALS: BMI 31.5
== END 2023-06-07 15:28 | disposition home or self-care (01) ==
PROVIDERS: PCP Internal Medicine; Visit Provider Physician Assistant
DX: M17.12 Unilateral primary osteoarthritis, left knee (principal)
CPT/HCPCS: 99214

== ENCOUNTER 2023-08-29 11:09 | Outpatient (AMB) | payer OTHER, SELFPAY ==
[2023-08-29 11:24] VITALS: BP 118/74; PULSE 87; BMI 31.8
--- NOTE | 2023-08-29 11:24 | A.OFFVIS_ITS ---
Intake Vital Signs 08/29/23 11:24 Height 6 ft Weight 234 lb 9.149 oz BMI 31.8 BP 118/74 Blood Pressure Location Lt brachial Position Sitting Pulse 87 Pulse Source Pulse Oximeter Intake Visit Reasons: 6 mnth follow p Intake Note: Pt presents to the office today for a 6 month follow up. Pt states he is feeling well and feels better than his last visit. Pt states his acid reflux is better with the medication he was prescribed. Pt states he rarely gets acid reflux anymore. Pt states he does wake up in the mornings with a dry mouth. Pt denies any N/V/D. Allergies No Known Allergies Allergy (Verified 08/29/23 11:26) HPI 6 mnth follow p HPI Details ? 68 yr old m here for f/u RECAP: EGD for epigastric pain revealed h pylori 12/2020 I gave him triple therapy with PPI, amoxil and levoflox whcih he says he took h pylori breath test was pos I sent quadruple therapy, but unclear if he took it, MA couldn;t get him and we sent him a letter in the mail a while ago repeat H pylori was eventually done and negative i sent him pantoprazole for ongoing gERd INTERIM: He reports good results with PPI--needs refill he has noted more constipation but trying to improve diet with mnore fruit and veg he has colonoscopy coming up in October no blood in stools no nausea or vomiting EXAM: GENERAL: The patient is well developed and nontoxic. VITAL SIGNS:see workflow HEENT: Nonicteric sclerae, PERRLA, EOMI. Oropharynx clear. Moist mucous membranes. Conjunctivae appear well perfused. No thyroid mass. CHEST: Chest wall is nontender. HEART: Regular rate and rhythm without murmurs. LUNGS: Clear to auscultation bilaterally. ABDOMEN: Soft, positive bowel sounds, nontender, no organomegaly.no flank tenderness SKIN: No rash, no excessive bruising, petechiae, or purpura. NEUROLOGIC: Cranial nerves II-XII intact without motor/sensory deficit. A/P: 1/ H pylori gastritis s/p treatment, wit h neg follow up testing 2/ GERD with dysgeusia --improved 3/ constipation, awaiting colonoscopy PLAN: 1/ add metamucil and increase fluid inta ke 2/ cont with PPI, take MV and Vit D supp lement (checked with staff, no colonoscopy orde red--will order---PEG) [facility] Medical History Abdominal distention Class 1 obesity with body mass index (BMI) of 30.0 to 30.9 in adult Hypovitaminosis D Right knee pain Left knee pain Colon polyps Cervical stenosis of spine BPH (benign prostatic hyperplasia) Pure hypercholesterolemia GERD (gastroesophageal reflux disease) Surgical History History of esophagogastroduodenoscopy (EGD) History of umbilical hernia repair History of bunionectomy History of appendectomy Family History (Reviewed 08/29/23 @ 11: by Smiley Jasmine MA) Father Diabetes Mother Hypertension Maternal Grandmother Diabetes Paternal Grandmother Stroke Social History (Reviewed 08/29/23 @ 11: by Smiley Jasmine MA) Household Members: Family Household Members Other:: lives with mother Housing: House Alcohol intake: current Alcohol intake frequency: a few times a month Alcohol type: beer Patient Tobacco Use Status: Never used Tobacco e-Cigarette/Vaping Use: Never Used Second Hand Smoke Exposure: No service: No Current occupational status: retired 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 Patient is followed by Gastroenterology. Code(s): R10.13 - Epigastric pain (2) Colon polyps: Code(s): K63.5 - Polyp of colon Plan: colonoscopy Plan colonoscopy cont PPI Medications: New peg-electrolyte soln 420 gram until fecal effluent is clear; 240 mL PO Q10M 4,000 mL 0RF psyllium husk (Metamucil) mix into at least 8 oz of water or juice before administering 1 tbsp PO BID 660 grams 1RF Refilled pantoprazole 40 mg PO DAILY 90 days 90 tabs 3RF Coding Level of Care Code Est Pt Level 3 (38030) Diagnoses Epigastric abdominal pain R10.13 Colon polyps K63.5
== END 2023-08-29 11:53 | disposition home or self-care (01) ==
PROVIDERS: PCP Internal Medicine; Visit Provider Internal Medicine Gastroenterology
DX: R10.13 Epigastric pain (principal); K63.5 Polyp of colon
CPT/HCPCS: 99213

== ENCOUNTER → 2023-08-29 11:09 | Outpatient (BNVA) | payer OTHER, MEDICAID, SELFPAY | PROVIDERS: PCP Internal Medicine; Visit Provider Internal Medicine Gastroenterology | DX: R10.13 Epigastric pain (principal); K63.5 Polyp of colon | CPT/HCPCS: 99212 ==

== ENCOUNTER 2023-08-30 17:00 | Outpatient (RCR) | payer OTHER, SELFPAY ==
--- NOTE | 2023-07-06 14:44 | MHC.PT.EP ---
[facility] [place] Office [place] Office [place] Office [address] Reji Nath [address] [phone] F: [phone] F: [phone] F: [phone] F: [phone] Physical Therapy Plan of Care Date of Evaluation: 07/05/23 Date of Surgery: n/a Diagnosis: Bilateral primary osteoarthritis of knee Assessment: Pt is a pleasant and motivated 68yo M who presents to PT with B knee pain, R>L. He presents to PT with current impairments in pain, decreased ROM, decreased strength, decreased muscle length, decreased balance/proprioception, and impaired gait. He is limited functionally by crossing his legs, squatting, prolonged sitting, sitting>standing transition, prolonged standing, prolonged walking and stair navigation. He is an excellent candidate for skilled PT in order to address current impairments to facilitate return to PLOF. He is recommended to be seen 2x/week for 4 weeks and will be reassessed at that time. Frequency and Duration: The patient will be seen 2x/week for 4 weeks Short Term Goals: Pt will be I with HEP to promote self management of symptoms Pt will increase R knee flexion by 10 degrees [place] [employer] Goals: Pt will tolerate standing and walking > 45 minutes with minimal to no discomfort Pt will ascend/descend 1 flight of stairs with reciprocal pattern with minimal to no discomfort Pt will demonstrate improvements in function as evidenced by statistically significant improvement in LEFI outcome measure Treatment Plan: Modalities to reduce pain, spasms and effusion. Manual therapy to restore motion and function. Therapeutic exercise to improve strength and flexibility. Neuromuscular re-education for posture and balance. Therapeutic activities to return to functional activities of daily living. Electronically signed by: Sharri Preciado, PT, DPT Please sign and return to therapist. Thank you for your referral.
--- NOTE | 2023-12-19 10:36 | MHC.PT.DC ---
[facility] [place] Office [place] Office [place] Office [address] Reji Nath [address] [phone] F: [phone] F: [phone] F: [phone] F: [phone] Physical Therapy Discharge Report Diagnosis: Bilateral primary osteoarthritis of knee Date of Surgery: n/a Date of Evaluation: 07/05/23 Date of Discharge: 12/19/23 Treatments to Date: 6 Cancellations to Date: No Shows to Date: Discharge Status: Achieved Goals Improved Function Independent with HEP Discharge Summary: Pt was seen for PT from 07/05/23-08/30/23. His last attended appointment was 08/30/23. He made good progress throughout PT POC. He met his STGs and LTGs. He improved his ROM and strength to WFL. He improved his score on LEFI outcome measure from 15/80 on initial PT evaluation to 46/80 on 08/30/23 at D/C. He was I with HEP. Pt was D/C to HEP at that time Electronically signed by: Sharri Preciado, PT, DPT Please sign and return to therapist. Thank you for your referral.
== END 2023-12-19 10:36 | disposition home or self-care (01) ==
LOC: HO.PT 17:00
PROVIDERS: PCP Internal Medicine; Visit Provider Physician Assistant
DX: M17.0 Bilateral primary osteoarthritis of knee (principal)
CPT/HCPCS: 97110; 97161; 97530

== ENCOUNTER 2024-02-27 10:42 | Emergency (ER) | payer MEDICARE, MEDICAID, SELFPAY ==
--- NOTE | ~2024-02-27 | CT_ITS ---
EXAMINATION: CT CHEST WITHOUT CONTRAST CLINICAL INFORMATION: Fell down, chest injury, left rib pain COMPARISON: None available. TECHNIQUE: Multidetector volumetric CT imaging of the chest was done. Axial MIP volume rendering provided. Sagittal and coronal reformatted images were obtained. This CT examination was performed using dose optimization techniques as appropriate, variously including the following: *Automated exposure control *Adjustment of mA and/or kV according to patient size (this includes techniques or standardized protocols for targeted exams where dose is matched to indication/reason for exam; i.e. extremities or head) *Use of iterative reconstruction technique DLP: 403.31 mGy-cm FINDINGS: LUNGS: The visualized lung parenchyma is clear. PLEURA: No pleural effusion or pneumothorax is seen. PERICARDIUM: No pericardial effusion is seen. MEDIASTINUM AND ZULEIMA: Inadequate evaluation of the mediastinal and hilar lymph nodes due to absence of IV contrast filling the surrounding blood vessels. TRACHEOBRONCHIAL TREE: Trachea and bilateral mainstem bronchi are patent. THORACIC AORTA: The thoracic aorta is normal in size and smooth in outline. CORONARY ARTERY CALCIFICATIONS: Absent PULMONARY ARTERIES: The main pulmonary arteries appear to be normal in size. CHEST WALL AND LOWER NECK: The subcutaneous and muscular chest wall are intact with no focal lesion. No abnormal mass lesion could be seen in the visualized lower neck. BONES: Multilevel large sharp anterior and lateral syndesmophytes are present. No fracture or dislocation. No focal bone lesion diagnostic of metastatic disease could be seen in the thorax. VISUALIZED UPPER ABDOMEN: Bilateral adrenal glands are not enlarged. CT/CT chest wo IV con IMPRESSION: 1. Normal CT scan of the chest. 2. No focal pulmonary hemorrhage or pneumothorax is seen. 3. No evidence of thoracic aortic aneurysm is seen. Fleischner guidelines were followed.
--- NOTE | ~2024-02-27 | CT_ITS ---
EXAMINATION: CT CERVICAL SPINE WITHOUT CONTRAST CLINICAL INFORMATION: Fell down, neck injury and pain COMPARISON: MRI cervical spine on 12/06/2017 TECHNIQUE: Multiple 3.0 and 0.6 mm axial images were obtained from base of skull to T1 levels without IV contrast enhancement. Sagittal and coronal 2.0 mm bone window images were reconstructed from axial image data. This CT examination was performed using dose optimization techniques as appropriate, variously including the following: *Automated exposure control *Adjustment of mA and/or kV according to patient size (this includes techniques or standardized protocols for targeted exams where dose is matched to indication/reason for exam; i.e. extremities or head) *Use of iterative reconstruction technique DLP: 481.37 mGy-cm FINDINGS: C1/C2: Bony structures are intact with normal alignment. There is no spinal stenosis. C2/C3: Bony structures are intact with normal alignment. There is no spinal stenosis. Bilateral C2/C3 neuroforamina are patent. Bilateral apophyseal joints are intact with normal alignment. C3/C4: Bony structures are intact with normal alignment. Sharp anterior bridging syndesmophytes are present. Mild posterior disc protrusion is present. There is resulting mild spinal stenosis with AP diameter of the spinal canal reduced to 9.5 mm. There is mild asymmetric left C3/C4 neuroforaminal stenosis. Bilateral apophyseal joints are intact with normal alignment. C4/C5: Bony structures are intact with normal alignment. There is marked decrease in intervertebral disc height. Sharp anterior bridging syndesmophytes are present. Mild posterior disc protrusion is seen. There is resulting mild spinal stenosis with AP diameter of the spinal canal reduced to 9.4 mm. Bilateral C4/C5 neuroforamina are markedly stenosed. Bilateral apophyseal joints are intact with normal alignment. C5/C6: Bony structures are intact with normal alignment. Both anterior and posterior syndesmophytes are present. There is no spinal stenosis. Bilateral C5/C6 neuroforamina are markedly stenosed. Bilateral apophyseal joints are intact with normal alignment. C6/C7: Bony structures are intact with normal alignment. Sharp anterior bridging syndesmophytes are present. There is no spinal stenosis. Bilateral C6/C7 neuroforamina are patent. Bilateral apophyseal joints are intact with normal alignment. C7/T1: Bony structures are intact with normal alignment. Sharp anterior bridging syndesmophytes are present. There is no spinal stenosis. Bilateral C7/T1 neuroforamina are patent. Bilateral apophyseal joints are intact with normal alignment. Multilevel bilateral apophyseal joint and uncovertebral joint osteoarthritis with loss of joint space, sclerosis, facet hypertrophy and osteophytosis are seen. Posterior C4-C7 ligamentum nuchae ossifications are present. CT/CT cervical spine wo IV con IMPRESSION: 1. No evidence of acute fracture or dislocation of the cervical spine. 2. Persistent Multilevel degenerative changes of the cervical spine, C3-C4 to C5-C6 neural foramina stenosis as described above. 3. 3. Persistent mild C3-C4 and C4-C5 spinal stenosis. Fleischner guidelines were followed.
--- NOTE | ~2024-02-27 | CT_ITS ---
EXAMINATION: CT HEAD WITHOUT CONTRAST CLINICAL INFORMATION: Blunt head trauma without loss of consciousness, significant head injury and posttraumatic headache. COMPARISON: MRI brain on 08/02/2019 TECHNIQUE: Contiguous axial imaging was performed from the skull base to vertex without intravenous administration of contrast. This CT examination was performed using dose optimization techniques as appropriate, variously including the following: *Automated exposure control *Adjustment of mA and/or kV according to patient size (this includes techniques or standardized protocols for targeted exams where dose is matched to indication/reason for exam; i.e. extremities or head) *Use of iterative reconstruction technique DLP: 763.85 mGy-cm FINDINGS: Ventricles, sulci and cisterns are prominent. There is no midline shift, no abnormal intra- or extra- axial fluid accumulation. Whitney and white matter differentiation is normal. A thick rim calcified low density lesion is seen in the pineal region measuring 1.8 cm in AP diameter, 1.5 cm in width, 1.5 cm in vertical height (1.6 cm on MRI). Bone window images show no evidence of skull fracture. Bilateral ethmoid sinuses show mild mucosal thickening. CT/CT head/brain wo IV con IMPRESSION: 1. Mild age related cerebral atrophy and ventriculomegaly. 2. No intracranial hemorrhage or skull fracture is seen. 3. 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 No evidence of intra-axial space occupying lesion could be found. 4. The current plain CT scan of the brain shows no diagnostic evidence of acute cerebral infarction.
[2024-02-27 10:51] VITALS: BP 122/69; PULSE 71; RESP 16; TEMP 36.3; O2SAT 98; BMI 31.9
--- NOTE | 2024-02-27 13:21 | ED_ITS ---
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 Not on thinners now has pain with on L rib with breathing and moving. MD complaint: fall Onset (ago): day(s) (Tuesday) Fall from: other (trampoline) Fall witnessed: yes, by bystander Place fall occurred: other ([employer]) Loss of consciousness: yes, seconds Prolonged down time: no Symptoms prior to fall: none Context: tripped/slipped Location of injury: head and chest Severity: moderate Quality: dull and aching Associated symptoms (after fall): other (L sided rib pain) Related Data Home Medications ?Medication ?Instructions ?Recorded ?Confirmed timolol maleate 0.5 % eye drops 0 drp ophthalmic (eye) 08/31/21 05/04/23 Previous Rx's ?Medication ?Instructions ?Recorded docusate sodium 100 mg capsule 100 mg PO BID #90 caps 05/04/23 (Colace) pantoprazole 40 mg tablet,delayed 40 mg PO DAILY 90 days #90 tabs 08/29/23 release peg-electrolyte solution 420 gram 240 ml PO Q10M #4,000 mL 08/29/23 oral solution psyllium husk 3.4 gram/5.4 gram 1 tbsp PO BID #660 grams 08/29/23 oral powder (Metamucil) cyclobenzaprine 10 mg tablet 10 mg PO TID PRN muscle spasm #20 02/27/24 tabs lidocaine 5 % topical patch 1 patch topical DAILY #30 ea 02/27/24 Allergies Allergy/AdvReac Type Severity Reaction Status Date / Time No Known Allergies Allergy Verified 02/27/24 10:56 Review of Systems Review of Systems: Constitutional : No Fever, No Chills, No Fatigue ENT/Mouth : No sore throat, No Rhinorrhea Eyes: No Eye Pain, No Swelling, No Redness Cardiovascular : No Chest Pain, No SOB, No Dyspnea on Exertion, pos rib pain Respiratory : No Cough, No Sputum Gastrointestinal : No Nausea, No Vomiting, No Diarrhea, No abdominal Pain Genitourinary : No Dysuria, No Urinary Frequency, No Hematuria, Musculoskeletal : No joint pain, No Myalgias, No Joint Swelling Skin : No Skin Lesions, No rash Neuro : No Weakness, No Numbness, No Dizziness, no Headache Psych : No Anxiety/Panic, No Depression Heme/Lymph: No Bruising, No Bleeding,No Lymphadenopathy Endocrine : No Polyuria, No Polydipsia All other systems reviewed and are negative PMFSH Past Medical History Attestation statement: The following information was validated with the patient. Source: old records reviewed Medical History Abdominal distention Class 1 obesity with body mass index (BMI) of 30.0 to 30.9 in adult Hypovitaminosis D Right knee pain Left knee pain Colon polyps Cervical stenosis of spine BPH (benign prostatic hyperplasia) Pure hypercholesterolemia GERD (gastroesophageal reflux disease) Surgical History History of esophagogastroduodenoscopy (EGD) History of umbilical hernia repair History of bunionectomy History of appendectomy Family History Family History Father Diabetes Mother Hypertension Maternal Grandmother Diabetes Paternal Grandmother Stroke Social History Social History Household Members: Family Household Members Other:: lives with mother Housing: House Alcohol intake: current Alcohol intake frequency: a few times a month Alcohol type: beer Patient Tobacco Use Status: Never used Tobacco e-Cigarette/Vaping Use: Never Used Second Hand Smoke Exposure: No service: No Current occupational status: retired 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 Oriented X3. No acute distress. Eyes: Pupils equal, round and reactive to light. ENT: Pharynx normal. atraumatic no molina or racoon sign Neck: Normal inspection. Neck supple. CVS: Normal heart rate and rhythm. Pulses normal. L anterior rib ttp no crepitus felt no LUQ Pain or mass felt Respiratory: No respiratory distress. Breath sounds normal. Abdomen: Soft and nontender. Skin: Skin warm and dry. Normal skin color. Normal skin turgor. Extremities: No lower extremity edema. N Neuro: Oriented X 3. No motor deficit. No sensory deficit. 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 His abdominal exam is benign. Differential Diagnosis Differential Diagnoses: The differential diagnosis associated with the presentation includes rib contusion, fracture Admission/Observation Consideration of admission/observation: Escalation of care including admission/observation considered work up negative GCS 15 stable for DC Independent Interpretation I performed an independent interpretation of an: CT Scan (no acute trauma) Radiology Impression Discussion of test interpretation with radiology: I have reviewed the radiologist's reading. External Record Review External record reviewed: Inpatient record Prescription Management I considered prescription management with: Pain Medication and Other Discharge Plan Discharge Clinical Impression: Contusion of rib on left side Qualifiers: Encounter type: initial encounter Qualified Code(s): S20.212A - Contusion of left front wall of thorax, initial encounter Patient Disposition: Home, Self-Care Instructions: Rib Contusion (ED) Additional Instructions: return for worsening pain, difficulty breathing, fevers, bloody sputum no lifting more than 10lbs for 2 weeks Prescriptions: New cyclobenzaprine 10 mg tablet 10 mg PO TID PRN (Reason: muscle spasm) Qty: 20 0RF lidocaine 5 % adhesive patch,medicated 1 patch topical DAILY Qty: 30 0RF Rx Instructions: leave on most painful area for up to 12 hrs No Action docusate sodium [Colace] 100 mg capsule 100 mg PO BID Qty: 90 1RF timolol maleate 0.5 % drops 0 drp ophthalmic (eye) Metamucil 3.4 gram/5.4 gram powder 1 tbsp PO BID Qty: 660 1RF Rx Instructions: mix into at least 8 oz of water or juice before administering peg-electrolyte soln 420 gram recon soln 240 ml PO Q10M Qty: 4000 0RF Rx Instructions: until fecal effluent is clear; pantoprazole 40 mg tablet,delayed release (DR/EC) 40 mg PO DAILY 90 Days Qty: 90 3RF Print Language: New Zealander
--- NOTE | 2024-02-27 14:03 | PC.NURSE ---
PT WAS SEEN AND DISCHARGED BY PHYSICIAN
== END 2024-02-27 14:08 | disposition home or self-care (01) ==
LOC: HO.ED 14:04
PROVIDERS: Emergency Provider Emergency Medicine; PCP Internal Medicine
DX: S20.212A Contusion of left front wall of thorax, initial encounter (principal); S09.90XA Unspecified injury of head, initial encounter; W19.XXXA Unspecified fall, initial encounter; Y93.A1 Activity, exercise machines primarily for cardiorespiratory conditioning; Y92.59 Other trade areas as the place of occurrence of the external cause; Y99.9 Unspecified external cause status
CPT/HCPCS: 70450; 71250; 72125; 99281; 99284

== ENCOUNTER 2024-03-07 07:48 | Day surgery (SDC) | payer MEDICARE, MEDICAID, SELFPAY ==
--- NOTE | 2024-03-07 05:53 | P.HPSUR_ITS ---
Pre-Procedural Eval Section A - 24 Hr Update-Section A only Date of Service: 03/07/24 Section B - Complete if H&P > 30 days Chief Complaint: Encounter for screening for malignant neoplasm of Relevant Family History (Specify if Yes): No Relevant Social History: None Present Medications: see Short Stay Collaborative assessment Medical History: Significant History (BPH (benign prostatic hyperplasia) Cervi ravindra stenosis of spine Colon polyps GERD (gastroesophageal reflux disease) Pure hypercholesterolemia) History of Previous Operations: Relevant previous surgery/procedure and date(s) (History of appendectomy History of bunionectomy History of umbilical hernia repair) Allergies: Allergies Allergy/AdvReac Type Severity Reaction Status Date / Time No Known Allergies Allergy Verified 02/27/24 10:56 Review of Systems Sugical H&P ROS: Negative: Constitution, Cardiovascular, Respiratory, Neurological, Psychiatric, Hem-Onc, Allergic/Immunologic, Gastrointestinal, Genitourinary, Musculoskeletal, Integumentary, Endocrine and Eyes/Ears/Nose/Throat Exam Surgical H&P Exam: Normal: HEENT, Normal: Heart, Normal: Lungs, Normal: Extremities, Normal: Abdomen, Normal: Skin and Normal: Neurological Plan Diagnosis/Plan: Unchanged I have reviewed the history and physical and performed a pertinent physical examination on my patient. No changes have occurred unless specified. Time Spent With Patient Time: Total time managing care of this patient today ____ minutes.
[2024-03-07 08:23] VITALS: BP 149/93; PULSE 90; RESP 18; TEMP 36.1; O2SAT 97
[2024-03-07 08:25] VITALS: BMI 31.1
[2024-03-07] MEDS: Lactated Ringers 1,000 ML 50 ML IVCONT (08:43)
--- NOTE | 2024-03-07 08:44 | P.CONAN_ITS ---
[facility] Active Problems Active Problems: All Active Problems Osteoarthritis of left knee (Acute) Osteoarthritis of knees, bilateral (Acute) Tubular adenoma of colon (Acute) Physical exam (Acute) Internal derangement of right knee (Acute) Abdominal distention (Acute) Class 1 obesity with body mass index (BMI) of 30.0 to 30.9 in adult (Acute) Hypovitaminosis D (Acute) H. pylori infection (Acute) Right knee pain (Acute) Adult general medical exam (Acute) Left knee pain (Acute) Epigastric abdominal pain (Acute) Colon polyps (Acute) Cervical stenosis of spine (Acute) BPH (benign prostatic hyperplasia) (Acute) Pure hypercholesterolemia (Acute) GERD (gastroesophageal reflux disease) (Acute) Past Medical History Medical History Abdominal distention Class 1 obesity with body mass index (BMI) of 30.0 to 30.9 in adult Hypovitaminosis D Right knee pain Left knee pain Colon polyps Cervical stenosis of spine BPH (benign prostatic hyperplasia) Pure hypercholesterolemia GERD (gastroesophageal reflux disease) Family History Family History Father Diabetes Mother Hypertension Maternal Grandmother Diabetes Paternal Grandmother Stroke Family history of problems with anesthesia: No Surgical History Surgical History History of esophagogastroduodenoscopy (EGD) History of umbilical hernia repair History of bunionectomy History of appendectomy History of Problems with Anesthesia: No Social History Social History Household Members: Family Household Members Other:: lives with mother Housing: House Alcohol intake: current Alcohol intake frequency: a few times a month Alcohol type: beer Patient Tobacco Use Status: Current someday Tobacco user e-Cigarette/Vaping Use: Never Used Second Hand Smoke Exposure: No Use of substances other than those prescribed or required for medical reasons: No Are you DNR?: No Advance Directives: No Advance Directives Information Provided: Yes service: No Current occupational status: retired 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 Cognitive needs: No Hearing needs: No Vision needs: No Meds Allergies Allergy/AdvReac Type Severity Reaction Status Date / Time No Known Allergies Allergy Verified 02/27/24 10:56 Active Medications: Current Medications Lactated Ringer's (Lr) 1,000 mls @ 50 mls/hr IVCONT .Q20H BARBARA Last Admin: 03/07/24 08:43 Dose: 50 mls/hr Home Medications ?Medication ?Instructions ?Recorded ?Confirmed ?Last Taken ?Type timolol maleate 0.5 % eye drops 1 drp ophthalmic (eye) DAILY 08/31/21 03/07/24 Unknown History Exam Height,Weight and Vital Signs: Height 6 ft Weight 103.873 kg Last Vital Signs Temp 96.9 F 03/07/24 08:23 Pulse 90 03/07/24 08:23 Resp 18 03/07/24 08:23 BP 149/93 H 03/07/24 08:23 Pulse Ox 97 03/07/24 08:23 O2 Del Method Room Air 03/07/24 08:23 Airway Mallampati Class: II (implants laterally) TM Dist: >3cm Neck ROM: Full Heart: rrr Lungs: cta Assessment and Plan Assessment Anesthesia Assessment: Anesthesia Plan Discussed and Chart Reviewed Final Anesthetic Review Family History of Problems with Anesthesia: No History of Problems with Anesthesia: No NPO: Yes ASA Class: III Final Preanesthetic Review: No Changes in Pt Med Stat, Meds/Allgs Chart Reviewed and Consent Obtained/Reviewed Patient Risk: Low Procedure Risk: Low Anesthetic Plan Anesthetic Plan: MAC: Disposition: Standard PACU
--- NOTE | 2024-03-07 09:31 | HO.OPN-COLON ---
Colonoscopy Operative Note Operative Note Date of Service: 03/07/24 Narrative: Operative Information Procedure Description: Colonoscopy Indication: screening Anesthesia: MAC COLONOSCOPY Instrument: Olympus variable stiffness pediatric scope 190L Colonoscopy Monitoring: Vital signs and clinical assessment, continuous EKG monitoring, Pulse oximetry, Carbon Dioxide monitoring and blood pressure monitoring were done throughout the procedure. Colon withdrawal time was 12 minutes. Procedure: The patient was placed in the left lateral decubitis position and pre-procedure medications were administered. After a digital rectal examination of the ano-rectum, the video colonoscope was inserted into the rectum and advanced through the colon to the cecum/TI. The colonoscope was slowly withdrawn in a retrograde panoramic fashion and the colon mucosa was carefully examined including a retroflexed view of the rectum. Findings and interventions are described below. Procedure Difficulty: moderate- redundant colon Findings: Terminal Ileum-not intubated Cecum:normal Ascending Colon: normal Transverse Colon -normal Descending Colon:normal Sigmoid Colon: normal Rectum: Retroflexion with medium sized internal hemorrhoids seen, grade I Anorectum - normal Intervention: none Colon preparation: [place] Bowel Preparation Scale Right colon; 1-2 Transverse colon: 2- Left colon; 2 (0 = Unprepared colon segment with mucosa not seen due to solid stool that cannot be cleared. 1 = Portion of mucosa of the colon segment seen, but other areas of the colon segment not well seen due to staining, residual stool and/or opaque liquid. 2 = Minor amount of residual staining, small fragments of stool and/or opaque liquid, but mucosa of colon segment seen well. 3 = Entire mucosa of colon segment seen well with no residual staining, small fragments of stool or opaque liquid) Impression and Post Procedure Diagnosis: internal hemorrhoids Plan: High fiber diet leaflet Avoid straining at stool, epsom salts and sitz bath, anusol supps or cream Repeat Colonoscopy in 1 year due to fair prep in right colon (ate solids yesterday) or earlier if clinically indicated Above findings were reviewed with the patient and relevant handouts were provided if indicated.
[2024-03-07 09:35] VITALS: BP 107/72; PULSE 77; RESP 16; TEMP 36.1; O2SAT 93
[2024-03-07 09:50] VITALS: BP 110/73; PULSE 70; RESP 17; O2SAT 94
== END 2024-03-07 10:22 | disposition home or self-care (01) ==
PROVIDERS: PCP Internal Medicine; Visit Provider Internal Medicine Gastroenterology
PROC: 0DJD8ZZ Inspection of Lower Intestinal Tract, Via Natural or Artificial Opening Endoscopic (ICD-10-PCS; CPT 45378; principal; 2024-03-07 09:10)
DX: Z12.11 Encounter for screening for malignant neoplasm of colon (principal); K64.0 First degree hemorrhoids; Z86.010 Personal history of colon polyps; E78.00 Pure hypercholesterolemia, unspecified; K21.9 Gastro-esophageal reflux disease without esophagitis
CPT/HCPCS: G0105; J2704

== ENCOUNTER → 2024-03-07 07:48 | Outpatient (BNV) | payer MEDICARE, SELFPAY | PROVIDERS: PCP Internal Medicine; Visit Provider Internal Medicine Gastroenterology | DX: Z12.11 Encounter for screening for malignant neoplasm of colon (principal); Z86.010 Personal history of colon polyps; K64.0 First degree hemorrhoids; Z91.199 Patient's noncompliance with other medical treatment and regimen due to unspecified reason | CPT/HCPCS: G0105 ==

== ENCOUNTER 2024-05-08 12:59 | Outpatient (AMB) | payer MEDICARE, SELFPAY ==
--- NOTE | 2024-05-08 13:04 | MHC.PC.OV ---
Vital Signs 05/08/24 13:06 Height 6 ft Weight 230 lb BMI 31.2 BP 130/80 Blood Pressure Location Lt brachial Position Sitting Intake Visit Reasons: pe Concierge Manager Required: No Accompanied by: Self / Same As Patient Allergies No Known Allergies Allergy (Verified 05/08/24 13:17) Medication List - Last Reconciled 05/08/24 by Dimple Wilde MD pantoprazole 40 mg PO DAILY 90 days timolol maleate 0.5% 1 drp ophthalmic (eye) DAILY Tobacco use date assessed: 05/08/24 Fall risk assessment: 1 Fall in past year Last assessed Fall Risk: 05/08/24 Dental Screening Dental Screen Date: 05/08/24 Did you have a dental visit in the last 12 months?: No Did you have a dental problem in the last 6 months where you did not have access to dental care?: No Was dental information given to patient?: Patient has dentist HPI HPI Comments History of Present Illness Details This is a 69-year-old male that comes for his physical exam. Had a colonoscopy on February of this year. Denies any chest pain or shortness on breath. No fever or cough. [facility] Medical History (Updated 05/08/24 @ 13:30 by Dimple Wilde MD) Abdominal distention Class 1 obesity with body mass index (BMI) of 30.0 to 30.9 in adult Hypovitaminosis D Right knee pain Left knee pain Colon polyps Cervical stenosis of spine BPH (benign prostatic hyperplasia) Pure hypercholesterolemia GERD (gastroesophageal reflux disease) Surgical History History of esophagogastroduodenoscopy (EGD) History of umbilical hernia repair History of bunionectomy History of appendectomy Family History Father Diabetes Mother Hypertension Maternal Grandmother Diabetes Paternal Grandmother Stroke Social History Household Members: Family Household Members Other:: lives with mother Housing: House Alcohol intake: current Alcohol intake frequency: a few times a month Alcohol type: beer Patient Tobacco Use Status: Current someday Tobacco user e-Cigarette/Vaping Use: Never Used Second Hand Smoke Exposure: No service: No Current occupational status: retired 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 1. Little interest or pleasure in doing things: not at all 2. Feeling down, depressed, or hopeless: not at all 3. Trouble falling or staying asleep, or sleeping too much: not at all 4. Feeling tired or having little energy: not at all 5. Poor appetite or overeating: not at all 6. Feeling bad about yourself - or that you are a failure or have let yourself or your family down: not at all 7. Trouble concentrating on things, such as reading the newspaper or watching television: not at all 8. Moving or speaking so slowly that other people could have noticed. Or the opposite - being so fidgety or restless that you have been moving around a lot more than usual: not at all 9. Thoughts that you would be better off or of hurting yourself in some way: not at all Total score: 0 Depression Screening Interpretation: Negative Depression Screening Done: Yes 93956 - PHQ-9 Billing: Yes Source: Developed by Drs. Vitaly Wilson, Gia Reyes, Juan De Leon and colleagues, with an educational sho from [employer] Thrive Questionnaire Date Thrive assessed: 05/08/24 I am a: Patient What is your living situation today?: I have a steady place to live Within the past 12 months, did the food you bought not last and you didn't have the money to get more?: Never true Within the past 12 months, did you worry whether your food would run out before you got money to buy more?: Never true Do you have trouble paying for medicines?: No Do you have trouble getting transportation to medical appointments?: No Do you have trouble paying your heating and electricity bill?: No Do you have trouble taking care of your child, family member or friend?: No Do you have trouble with day-to-day activities such as bathing, preparing meals, shopping, managing finances, etc.?: No Are you currently unemployed and looking for a job?: No Are you interested in more education?: No Please select the resources that you would like help with: None Currently or been in a relationship where the following occur: No concerns reported THRIVE Score: 0 AUDIT C Alcohol Use Questionnaire (AUDIT-C) 1. How often do you have a drink containing alcohol?: 2-4 times a month 2. How many drinks containing alcohol do you have on a typical day when you are drinking?: 1 or 2 3. How often do you have six or more drinks on one occasion?: Never Total Score: 2 Score Reviewed/Action Taken: No ANNALISE-7 AMB Questionnaire ANNALISE-7 Date ANANLISE - 7 assessed: 05/08/24 Feeling nervous, anxious, or on edge: 0 = Not at all Not being able to stop or control worryin = Not at all Worrying too much about different things: 0 = Not at all Trouble relaxin = Not at all Being so restless that it is hard to sit still: 0 = Not at all Becoming easily annoyed or irritable: 0 = Not at all Feeling afraid as if something awful might happen: 0 = Not at all Total ANNALISE-7 score (0-4 normal; 5-9 mild; 10-14 moderate; 15-21 severe): 0 Source: Developed by Drs. Vitaly Wilson, Gia Reyes, Juan De Leon and colleagues, with an educational sho from [employer] ANNALISE-7 Assessment Billing ANNALISE-7 Assessment Tool: ANNALISE-7 Assessment 68389 Review of Systems Const All systems reviewed & are unremarkable except as noted in HPI and below Card Denies chest pain at rest, Denies chest pain with activity, Denies edema, Denies irregular heart rhythm, Denies claudication, Denies dyspnea, Denies dyspnea on exertion, Denies orthopnea, Denies paroxysmal nocturnal dyspnea and Denies slow heart rate Resp Denies cough, Denies dyspnea and Denies dyspnea on exertion Neuro Denies lack of coordination Physical exam (Primary Care) Vital Signs: Last Vital Signs BP 130/80 05/08/24 13:06 BMI result Body Mass Index 31.2 BMI Assessment/Plan discussion: High BMI High, discussed plan: lifestyle, weight reduction, dietary and physical activity Tobacco/Smoking Status: Tobacco use Status Tobacco use date assessed 05/08/24 05/08/24 13:14 Patient Tobacco Use Status Never used Tobacco 05/08/24 13:14 e-Cigarette/Vaping Use Never Used 05/08/24 13:14 PHQ-9: PHQ-9 Score PHQ-9: Total score 0 05/08/24 13:14 Depression Screening Interpretation: Negative Thrive Assessment: Date of Thrive Assessment Date Thrive assessed 05/08/24 05/08/24 13:14 Currently or been in a relationship where the following occur: No concerns reported HENMT Head: Yes normal to inspection, Yes normocephalic and Yes atraumatic Ears: external ears normal Eyes General: appearance normal, both eyes and all related structures Eyelids: Yes eyelids normal Conjunctivae: conjunctivae normal Neck Neck: Yes normal visual inspection and Yes supple Resp Effort & Inspection: normal respiratory effort Auscultation: clear to auscultation bilaterally Cardio Jugular venous distension: no JVD Rate: regular rate Rhythm: regular rhythm Heart sounds: S1 normal heart sound present and S2 normal heart sound present GI Inspection: Yes normal to inspection Palpation (GI): Soft to palpation and nontender Auscultation: normal bowel sounds Skin General skin exam: no rashes or lesions noted Neuro General: no focal motor deficits Extrem General: Yes full ROM Psych Appearance: grossly normal Assessment and Plan Assessment & Plan (1) Physical exam: Code(s): Z00.00 - Encounter for general adult medical examination without abnormal findings Plan: Repeat in a year. Orders: Orders Complete Blood Count Auto Diff Today D64.9 - Anemia, unspecified IRON PROFILE Today D64.9 - Anemia, unspecified Lipid Panel Today Z00.00 - Encounter for general adult medical examination without abnormal findings Comprehensive [place]. Panel Fast Today Z00.00 - Encounter for general adult medical examination without abnormal findings Coding Level of Care Code Est Pt Prev Care >65y(07605) Diagnoses Physical exam Z00.00 Additional Codes ANNALISE-7 Assessment Billing - ANNALISE-7 Assessment Tool: ANNALISE-7 Assessment 20346 ([id number]) Time Spent (min) 30
[2024-05-08 13:06] VITALS: BP 130/80; BMI 31.2
== END 2024-05-08 13:31 | disposition home or self-care (01) ==
PROVIDERS: PCP Internal Medicine; Visit Provider Internal Medicine
DX: Z00.00 Encounter for general adult medical examination without abnormal findings (principal)
CPT/HCPCS: 99397

== ENCOUNTER 2024-06-04 10:17 | Outpatient (AMB) | payer MEDICARE, SELFPAY ==
--- NOTE | 2024-06-04 10:18 | MHC.OFFVIS ---
Vital Signs 06/04/24 10:20 Height 6 ft Weight 229 lb 4.492 oz BMI 31.1 BP 112/73 Blood Pressure Location Lt brachial Position Sitting Pulse 59 Intake Visit Reasons: follow up req by pt Intake Note: Igor presents in the office as a follow up that was requested per patient. CC: He states yesterday morning he was having vomiting. He states that it happened this morning as well. He states that this is not normal for him. Investigator Claims Required: Yes Investigator Claims Name: [id number] Yolette Allergies No Known Allergies Allergy (Verified 06/04/24 10:23) HPI Comments Details: 69 yr old m here for f/u RECAP: EGD for epigastric pain revealed h pylori 12/2020 I gave him triple therapy with PPI, amoxil and levoflox whcih he says he took h pylori breath test was pos I sent quadruple therapy, but unclear if he took it, [facility] couldn;t get him and we sent him a letter in the mail a while ago repeat H pylori was eventually done and negative i sent him pantoprazole for ongoing gERd Colonoscopy: 03/02- fair prep right colon, internal hemorrhoids--rept 1 yr INTERIM: he had some vomiting and dizziness, his eye sight is blurry in both eyes no abdominal pain denies headaches no arm or leg weakness no sick contacts denies fever or chills no blood in stools no longer feels any nausea, after vomiting second time dizziness and nausea improved he is worried about prolapsing hemorrhoid EXAM: GENERAL: The patient is well developed and nontoxic. VITAL SIGNS:see workflow HEENT: Nonicteric sclerae, PERRLA, EOMI. Oropharynx clear. Moist mucous membranes. Conjunctivae appear well perfused. No thyroid mass. cataract left eye (known about) CHEST: Chest wall is nontender. HEART: Regular rate and rhythm without murmurs. LUNGS: Clear to auscultation bilaterally. ABDOMEN: Soft, positive bowel sounds, nontender, no organomegaly.no flank tenderness anal inspection- no external lesions seen SKIN: No rash, no excessive bruising, petechiae, or purpura. NEUROLOGIC: Cranial nerves II-XII intact without motor/sensory deficit. A/P: 1/ H pylori gastritis s/p treatment, with neg follow up testing 2/ acute nausea and dizziness, improved with vomiting, still has some blurry vision but neg neuro exam, no red eye--prob viral gastroenteritis PLAN: 1/ check routine labs and urine, r/o DM 2. refer colorectal for internal hemorrhoids 3. if worsening then come to ED< if stable but no better then expand work up [facility] Medical History Abdominal distention Class 1 obesity with body mass index (BMI) of 30.0 to 30.9 in adult Hypovitaminosis D Right knee pain Left knee pain Colon polyps Cervical stenosis of spine BPH (benign prostatic hyperplasia) Pure hypercholesterolemia GERD (gastroesophageal reflux disease) Surgical History History of esophagogastroduodenoscopy (EGD) History of umbilical hernia repair History of bunionectomy History of appendectomy Family History Father Diabetes Mother Hypertension Maternal Grandmother Diabetes Paternal Grandmother Stroke Social History Household Members: Family Household Members Other:: lives with mother Housing: House Alcohol intake: current Alcohol intake frequency: a few times a month Alcohol type: beer Patient Tobacco Use Status: Current someday Tobacco user e-Cigarette/Vaping Use: Never Used Second Hand Smoke Exposure: No service: No Current occupational status: retired 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 Panel Today K75.81 - Nonalcoholic steatohepatitis (GRANT), R11.2 - Nausea with vomiting, unspecified Ferritin Today R11.2 - Nausea with vomiting, unspecified Vitamin B1 Today R11.2 - Nausea with vomiting, unspecified Vitamin B3 (Niacin) Today R11.2 - Nausea with vomiting, unspecified Vitamin B5 (Pantothenic Acid) Today R11.2 - Nausea with vomiting, unspecified Vitamin B6 Today R11.2 - Nausea with vomiting, unspecified Vitamin C Today R11.2 - Nausea with vomiting, unspecified Vitamin K1 Today R11.2 - Nausea with vomiting, unspecified Vitamin B12 and Folate Today R11.2 - Nausea with vomiting, unspecified Vitamin A Today R11.2 - Nausea with vomiting, unspecified Vitamin D 25-OH Total Today R11.2 - Nausea with vomiting, unspecified Vitamin E Today R11.2 - Nausea with vomiting, unspecified Zinc Today R11.2 - Nausea with vomiting, unspecified UA CC w/rflx Micro + Cult Today R11.2 - Nausea with vomiting, unspecified, R30.0 - Dysuria Hemoglobin A1c Today R11.2 - Nausea with vomiting, unspecified Referrals General Surgery Referral K64.8 - Other hemorrhoids Coding Level of Care Code Est Pt Level 4 (00884) Diagnoses Internal hemorrhoid K64.8 Nausea & vomiting R11.2
[2024-06-04 10:20] VITALS: BP 112/73; PULSE 59; BMI 31.1
== END 2024-06-04 10:50 | disposition home or self-care (01) ==
PROVIDERS: PCP Internal Medicine; Visit Provider Internal Medicine Gastroenterology
DX: K64.8 Other hemorrhoids (principal); R11.2 Nausea with vomiting, unspecified
CPT/HCPCS: 99214

== ENCOUNTER 2024-06-04 10:17 | Outpatient (REF) | payer MEDICARE, SELFPAY ==
[2024-06-04 11:58] LABS: MANUAL DIFF FLAG NO
[2024-06-04 12:16] LABS: Basophils Percent Auto 0.4 % (0-2); Eosinophils Absolute Auto 0.1 X10*3/uL (0.0-0.4); Eosinophils Percent Auto 1.6 % (0-4); Hematocrit 36.6 % (42.0-52.0); Hemoglobin 12.5 g/dl (14.0-18.0); Imm Gran Abs Auto 0.02 X10*3/uL (0.00-0.03); Imm Gran Pct Auto 0.4 % (0.0-0.4); Lymphocytes Absolute Auto 1.4 X10*3/uL (1.2-4.9); Lymphocytes Percent Auto 25.4 % (20-40); Mean Corpuscular HGB Conc 34.2 g/dl (31.0-36.0); Mean Corpuscular Hemoglobin 29.8 pg (27.0-33.0); Mean Corpuscular Volume 87.4 fL (80.0-98.0); Mean Platelet Volume 10.7 fL (9.4-12.4); Monocytes Absolute Auto 0.3 X10*3/uL (0.1-1.2); Monocytes Percent Auto 5.5 % (2-11); Neutrophils Absolute Auto 3.7 x10*3/uL (2.0-8.3); Neutrophils Percent Auto 66.7 % (45-73); Platelet Count 197 X10*3/uL (160-400); Red Blood Count 4.19 X10*6/uL (4.60-5.80); White Blood Count 5.5 X10*3/uL (4.8-10.8)
[2024-06-04 12:52] LABS: Alanine Aminotransferase 15 U/L (0-40); Albumin Level 4.1 g/dL (3.5-5.0); Alkaline Phosphatase 84 U/L (39-117); Anion Gap 9 (12-20); Aspartate Amino Transferase 17 U/L (5-37); Bilirubin Total 0.5 mg/dL (0.0-1.0); Blood Urea Nitrogen 10 mg/dL (9-16); Calcium 9.7 mg/dL (8.4-10.2); Carbon Dioxide 29 mmol/L (22-29); Chloride 110 mmol/L (96-108); Estimated Glomerular Filt Rate > 60; Glucose Random 118 mg/dL (60-115); Potassium 4.3 mmol/L (3.3-5.1); Sodium 144 mmol/L (135-145); Total Protein 7.2 g/dL (6.5-8.0)
[2024-06-04 12:58] LABS: Ferritin 97 ng/mL (20-250); Vitamin D 25-OH Total 22.4 ng/mL (>30)
[2024-06-04 13:09] LABS: Estimated Average Glucose 111 mg/dL; Hemoglobin A1c % 5.5 % (<6.0)
[2024-06-04 13:12] LABS: Folate 6.5 ng/mL (> or = 4.0); Vitamin B12 239 pg/mL (200-900)
[2024-06-04 13:35] LABS: Appearance Urine Clear; Color Urine Yellow; Glucose Urine UA Negative (Negative); Leukocyte Esterase Urine Negative (Negative); Nitrite Urine Negative (Negative); PH 6.5 (5.0-9.0); Specific Gravity - Urine 1.015 (1.005-1.025); Urine Blood Negative (Negative); Urine Ketones Negative (Negative); Urine Protein Negative (Neg-Trace)
[2024-06-07 16:13] LABS: Zinc 84 mcg/dL (60-130)
[2024-06-08 06:18] LABS: Vitamin A 46 mcg/dL (38-98)
[2024-06-08 19:03] LABS: Alpha-Tocopherol 10.6 mg/L (5.7-19.9); Beta-Gamma Tocopherol <1.0 mg/L (<=4.3)
[2024-06-08 19:07] LABS: Vitamin B6 11.7 ng/mL (2.1-21.7)
[2024-06-09 15:43] LABS: Nicotinamide 30 ng/mL (see note); Vit B3 - Nicotinic Acid <20 ng/mL (see note)
[2024-06-09 16:54] LABS: Vitamin K1 323 pg/mL (130-1500)
[2024-06-10 10:12] LABS: Vitamin B1 9 nmol/L (8-30)
[2024-06-10 11:09] LABS: Vitamin C 1.1 mg/dL (0.2-2.1)
[2024-06-10 15:23] LABS: Vitamin B5 (Pantothenic Acid) 40 ng/mL (<275)
== END 2024-06-04 10:18 | disposition home or self-care (01) ==
LOC: HO.LAB 10:17
PROVIDERS: PCP Internal Medicine; Visit Provider Internal Medicine Gastroenterology
DX: R11.2 Nausea with vomiting, unspecified (principal); R30.0 Dysuria; K75.81 Nonalcoholic steatohepatitis (NASH); Z13.1 Encounter for screening for diabetes mellitus; K64.8 Other hemorrhoids
CPT/HCPCS: 36415; 80053; 81003; 82180; 82306; 82607; 82728; 82746; 83036; 84207; 84425; 84446; 84590; 84591; 84597; 84630; 85025; 99212

== ENCOUNTER 2024-06-25 08:49 | Outpatient (AMB) | payer MEDICARE, SELFPAY ==
--- NOTE | 2024-06-25 08:50 | A.OFFVIS_ITS ---
Vital Signs 06/25/24 08:57 Height 6 ft Weight 224 lb BMI 30.4 BP 135/75 Blood Pressure Location Rt brachial Position Sitting Pulse 75 Intake Visit Reasons: hemorrhoids Intake Note: Patient referred by Dr. Leal for hemorrhoids. Recent colonoscopy on 03-07-20. Patient c/o: denies bleeding, constipation. Uses proctozone 2.5% cr. Feels external hemorrhoids. Guest Service Manager Required: Yes Guest Service Manager Name: Jazz HOFF Accompanied by: Self / Same As Patient Allergies No Known Allergies Allergy (Verified 06/25/24 08:55) HPI Comments Details: Patient was status post recent colonoscopy which was noteworthy only for internal hemorrhoids. Patient has had an episode of symptomatology from these recently which has markedly improved with application of a topical proctocream. Otherwise he is tolerating a diet. Having regular bowel habits. No abdominal issues or complaints. Chart was reviewed and patient evaluate [facility] Medical History Abdominal distention Class 1 obesity with body mass index (BMI) of 30.0 to 30.9 in adult Hypovitaminosis D Right knee pain Left knee pain Colon polyps Cervical stenosis of spine BPH (benign prostatic hyperplasia) Pure hypercholesterolemia GERD (gastroesophageal reflux disease) Surgical History History of esophagogastroduodenoscopy (EGD) History of umbilical hernia repair History of bunionectomy History of appendectomy Family History Father Diabetes Mother Hypertension Maternal Grandmother Diabetes Paternal Grandmother Stroke Social History Household Members: Family Household Members Other:: lives with mother Housing: House Alcohol intake: current Alcohol intake frequency: a few times a month Alcohol type: beer Patient Tobacco Use Status: Current someday Tobacco user e-Cigarette/Vaping Use: Never Used Second Hand Smoke Exposure: No service: No Current occupational status: retired 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 Rectal exam demonstrates no obvious external hemorrhoids and with straining a small internal hemorrhoid identified. Assessment & Plan Assessment & Plan (1) Internal hemorrhoid: Code(s): K64.8 - Other hemorrhoids Category: Surgical Plan At present, patient was continue his conservative management including high- fiber diet, avoid straining, and he is getting relief from topical agents. Renewal of the topical agent will be provided for him. Should he develop progression of symptoms, patient was instructed to call the office. Otherwise he will follow-up p.r.n.. All questions answered. Coding Level of Care Code New Pt Level 4 (20690) Diagnoses Internal hemorrhoid K64.8
[2024-06-25 08:57] VITALS: BP 135/75; PULSE 75; BMI 30.4
== END 2024-06-25 09:18 | disposition home or self-care (01) ==
PROVIDERS: PCP Internal Medicine; Visit Provider Surgery
DX: K64.8 Other hemorrhoids (principal)
CPT/HCPCS: 99204

== ENCOUNTER → 2024-06-25 08:49 | Outpatient (BNVA) | payer MEDICARE, MEDICAID, SELFPAY | PROVIDERS: PCP Internal Medicine; Visit Provider Surgery | DX: K64.8 Other hemorrhoids (principal) | CPT/HCPCS: 99202 ==

== ENCOUNTER 2024-08-10 09:31 | Emergency (ER) | payer MEDICARE, SELFPAY ==
[2024-08-10 09:43] VITALS: BP 128/77; PULSE 89; RESP 18; TEMP 36.6; O2SAT 98; BMI 30.1
--- NOTE | 2024-08-10 10:55 | ED.GENADULT ---
HPI - General Adult General Chief complaint: Back Pain/Injury Stated complaint: pain in ribs Time Seen by Provider: 08/10/24 10:08 Source: patient Mode of arrival: ambulatory Limitations: no limitations History of Present Illness ED Provider: Filiberto Gotti PA-C HPI narrative: 69 Yold male history of osteoarthritis vitamin-D deficiency, tubular adenoma of colon presents to ED for left back left ribcage pain with burning rash since yesterday. Patient denies any fever, chills, nausea, vomiting. Related Data Home Medications ?Medication ?Instructions ?Recorded ?Confirmed timolol maleate 0.5 % eye drops 1 drp ophthalmic (eye) DAILY 08/31/21 06/25/24 Previous Rx's ?Medication ?Instructions ?Recorded pantoprazole 40 mg tablet,delayed 40 mg PO DAILY 90 days #90 tabs 08/29/23 release hydrocortisone 2.5 % topical cream 1 appl DC BID-QID PRN hemorrhoids 06/25/24 with perineal applicator #30 grams (Proctozone-HC) gabapentin 100 mg capsule 100 mg PO TID 7 days #21 caps 08/10/24 ibuprofen 400 mg tablet 400 mg PO Q6H PRN pain 7 days #28 08/10/24 tabs valacyclovir 1 gram tablet 1,000 mg PO TID 10 days #30 tabs 08/10/24 Allergies Allergy/AdvReac Type Severity Reaction Status Date / Time No Known Allergies Allergy Verified 08/10/24 09:46 Review of Systems Review of Systems: left rib pain/back pain, burning rash Yes all other systems are reviewed and are negative PMFSH Past Medical History Medical History Abdominal distention Class 1 obesity with body mass index (BMI) of 30.0 to 30.9 in adult Hypovitaminosis D Right knee pain Left knee pain Colon polyps Cervical stenosis of spine BPH (benign prostatic hyperplasia) Pure hypercholesterolemia GERD (gastroesophageal reflux disease) Surgical History History of esophagogastroduodenoscopy (EGD) History of umbilical hernia repair History of bunionectomy History of appendectomy Family History Family History Father Diabetes Mother Hypertension Maternal Grandmother Diabetes Paternal Grandmother Stroke Social History Social History Household Members: Family Household Members Other:: lives with mother Housing: House Alcohol intake: current Alcohol intake frequency: a few times a month Alcohol type: beer Patient Tobacco Use Status: Current someday Tobacco user e-Cigarette/Vaping Use: Never Used Second Hand Smoke Exposure: No Advance Directives: No Advance Directives Information Provided: Yes Do you have a plan to hurt others: No Plan service: No Current occupational status: retired 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 Cognitive needs: No Hearing needs: No Vision needs: No Physical Exam ED Vital Signs: Vital Signs - 24 hr 08/10/24 09:43 Temperature 98 F Pulse Rate 89 Respiratory Rate 18 Blood Pressure 128/77 Pulse Oximetry 98 Oxygen Delivery Method Room Air BMI result Body Mass Index 30.1 Const General: cooperative, healthy appearing, comfortable, no acute distress, well developed, alert, awake and Physically active Orientation/consciousness: patient oriented x3 HENMT Other: no rash on nares Head: Yes normal to inspection, Yes No palpable skull fracture present, Yes normocephalic and Yes atraumatic Ears: hearing grossly normal bilaterally, external ears normal, TM's normal bilaterally, TM normal on the right, TM normal on the left, EAC's normal, mastoids normal and no periauricular adenopathy Eyes General: appearance normal, both eyes and all related structures Neck Neck: Yes normal visual inspection, Yes full ROM, Yes no lymphadenopathy, Yes no meningeal signs, Yes trachea midline, Yes supple, No anterior neck swelling and No tender Chest Chest palpation & inspection: normal inspection of the chest and normal palpation of entire chest wall Resp Effort & Inspection: normal respiratory effort and able to speak in complete sentences Auscultation: clear to auscultation bilaterally Cardio Jugular venous distension: no JVD Heart sounds: S1 normal heart sound present and S2 normal heart sound present GI Inspection: Yes normal to inspection Palpation (GI): Soft to palpation, not firm, nontender, no guarding and not rigid General: No CVA tenderness and Yes no CVA tenderness Back/Spine/Pelvis Back: no CVA tenderness, No CVA tenderness and No back tenderness Skin General skin exam: no rashes or lesions noted, elasticity normal and turgor normal Neuro General: patient oriented x3, gait normal, tone normal, moves all extremities, Normal light touch and pain sensation, no meningeal signs, no focal motor deficits, CN's II-XI intact bilaterally and normal sensation to monofilament Extrem General: Yes normal to inspection, Yes full ROM and Yes capillary refill normal Psych Appearance: grossly normal, well kempt and not disheveled Medical Decision Making Medical Decision Making MDM Narrative: 69-year-old male presents to ED presents to ED for burning rash on left rib and left back. Physical exam shows indicate shingles. Patient will be discharged with antiviral told to follow up with primary care provider. Negative for rosales anne syndrome, opthalamic herpes zoster, or any neurodeficits. Patient explained worrisome signs and informed to return to the ED immedialtey. Differential Diagnosis Differential Diagnoses: The differential diagnosis associated with the presentation includes (shingles, cellulitis, ) Admission/Observation Consideration of admission/observation: Escalation of care including admission/observation considered Independent Historian Clinical information obtained from an independent historian. History obtained from or confirmed by: Other (patient) External Record Review External record reviewed: Other (prior visits) Prescription Management I considered prescription management with: Other (antiviral) Discharge Plan Discharge Clinical Impression: Shingles Patient Disposition: Home, Self-Care Instructions: Shingles (ED) Additional Instructions: Recommend follow-up with your primary care provider. Return to the ED immediately for any ear pain, rash on face, eye pain, rash on eyes, blurry vision, chest pain, fever, chills, or any other concerning symptoms. Prescriptions: New valacyclovir 1 gram tablet 1,000 mg PO TID 10 Days Qty: 30 0RF gabapentin 100 mg capsule 100 mg PO TID 7 Days Qty: 21 0RF ibuprofen 400 mg tablet 400 mg PO Q6H PRN (Reason: pain) 7 Days Qty: 28 0RF No Action timolol maleate 0.5 % drops 1 drp ophthalmic (eye) DAILY pantoprazole 40 mg tablet,delayed release (DR/EC) 40 mg PO DAILY 90 Days Qty: 90 3RF hydrocortisone [Proctozone-HC] 2.5 % cream with perineal applicator 1 appl DC BID-QID PRN (Reason: hemorrhoids) Qty: 30 0RF Referrals: Dimple Mcbride MD [Primary Care Provider] - ([place]) Interventions: ED Discharge Assessment Last Done: 08/10/24 11:36 Discharge Date/Time: 08/10/24 11:36 Print Language: Georgian
[2024-08-10 11:36] VITALS: BP 128/77; PULSE 89; RESP 18; TEMP 36.6; O2SAT 98
== END 2024-08-10 11:36 | disposition home or self-care (01) ==
PROVIDERS: Emergency Provider Emergency Medicine Emergency Medical Services; PCP Internal Medicine
DX: B02.8 Zoster with other complications (principal); M54.50 Low back pain, unspecified; R07.81 Pleurodynia
CPT/HCPCS: 99282; 99283

== ENCOUNTER 2024-08-22 13:52 | Outpatient (AMB) | payer MEDICARE, SELFPAY ==
[2024-08-22 13:53] VITALS: BP 128/80
--- NOTE | 2024-08-22 13:53 | A.OFFPC_ITS ---
Vital Signs 3 08/22/24 13:53 Height 6 ft Weight 221 lb BMI 30.0 BP 128/80 Blood Pressure Location Lt brachial Position Sitting Intake Visit Reasons: [facility] 08/10 Shingles Livestock Caretaker Required: Yes Livestock Caretaker Language: Swedish Accompanied by: Self / Same As Patient Allergies No Known Allergies Allergy (Verified 08/22/24 13:57) Tobacco use date assessed: 05/08/24 Fall risk assessment: No Falls in past year Last assessed Fall Risk: 08/22/24 Dental Screening Dental Screen Date: 05/08/24 HPI HPI Comments 2 History of Present Illness0 Details 69 y/o male patient who presents to the clinic for EDF. He was admitted to [facility] on 08/10/24 and discharged home on the same day. He was admitted for Shingles. Today reports that rash is almost cleared but still has nerve pain and tenderness around the area. He was given Gabapentin and Ibuprofen that helped a lot with pain control. [facility] Medical History Abdominal distention Class 1 obesity with body mass index (BMI) of 30.0 to 30.9 in adult Hypovitaminosis D Right knee pain Left knee pain Colon polyps Cervical stenosis of spine BPH (benign prostatic hyperplasia) Pure hypercholesterolemia GERD (gastroesophageal reflux disease) Surgical History History of esophagogastroduodenoscopy (EGD) History of umbilical hernia repair History of bunionectomy History of appendectomy Family History Father Diabetes Mother Hypertension Maternal Grandmother Diabetes Paternal Grandmother Stroke Social History Household Members: Family Household Members Other:: lives with mother Housing: House Alcohol intake: current Alcohol intake frequency: a few times a month Alcohol type: beer Patient Tobacco Use Status: Current someday Tobacco user e-Cigarette/Vaping Use: Never Used Second Hand Smoke Exposure: No service: No Current occupational status: retired 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 Vitaly Wilson, Gia Reyes, Juan De Leon and colleagues, with an educational sho from [employer]. Physical exam (Primary Care) Vital Signs: Last Vital Signs BP 128/80 08/22/24 13:53 BMI result Body Mass Index 30.0 Tobacco/Smoking Status: Tobacco use Status Tobacco use date assessed 05/08/24 08/22/24 13:56 Patient Tobacco Use Status Current someday Tobacco 08/22/24 13:56 e-Cigarette/Vaping Use Never Used 08/22/24 13:56 Thrive Assessment: Date of Thrive Assessment Date Thrive assessed 05/08/24 08/22/24 13:56 Const Orientation/consciousness: patient oriented x3 Skin Lesions: lesion noted Rashes: rashes noted Full body images: 2 1. Small area with erythematous lesions, dry and crusty. TTP. Neuro General: patient oriented x3, gait normal and moves all extremities Psych Speech and movement: Normal speech and movement present Coding Level of Care Code Est Pt Level 4 (61376) Diagnoses Herpes zoster without complication B02.9 Herpes zoster complications: without complications Time Spent (min) 20 Assessment & Plan Assessment & Plan (1) Shingles: Code(s): B02.9 - Zoster without complications Qualifiers: Herpes zoster complications: without complications Qualified Code(s): B 02.9 - Zoster without complications Plan: Rash improved, still continues to have Nerve pain. Ordered additional dose of Gabapentin for 10 days. Medications: Changed 2 From gabapentin 100 mg PO TID 7 days 21 caps 0RF B02.9 - Zoster without complications To gabapentin 100 mg PO TID 30 caps 0RF 10 days B02.9 - Zoster without complications
== END 2024-08-22 14:33 | disposition home or self-care (01) ==
PROVIDERS: PCP Internal Medicine; Visit Provider Nurse Practitioner Family
DX: B02.9 Zoster without complications (principal)

== ENCOUNTER → 2024-08-22 13:52 | Outpatient (BNVA) | payer MEDICARE, SELFPAY | PROVIDERS: PCP Internal Medicine; Visit Provider Nurse Practitioner Family | DX: B02.9 Zoster without complications (principal) | CPT/HCPCS: 99212 ==

== ENCOUNTER 2024-12-27 16:54 | Outpatient (AMB) | payer MEDICARE, MEDICAID, SELFPAY ==
--- NOTE | 2024-12-27 16:56 | MHC.PC.OV ---
Vital Signs 12/27/24 17:00 Height 6 ft Weight 222 lb BMI 30.1 BP 118/74 Blood Pressure Location Lt brachial Position Sitting Intake Visit Reasons: follow up Intake Note: Patient here for a follow up Compliance Field Technician Required: Yes Compliance Field Technician Language: Solar Tech Name: Dimple Wilde MD Information Interpreted: non-clinical & clinical Accompanied by: Self / Same As Patient Allergies No Known Allergies Allergy (Verified 12/27/24 17:18) Medication List - Last Reconciled 12/27/24 by Dimple Wilde MD pantoprazole 40 mg PO DAILY timolol maleate 0.5% 1 drp ophthalmic (eye) DAILY Tobacco use date assessed: 12/27/24 Fall risk assessment: No Falls in past year Last assessed Fall Risk: 12/27/24 Dental Screening Dental Screen Date: 12/27/24 Did you have a dental visit in the last 12 months?: No Did you have a dental problem in the last 6 months where you did not have access to dental care?: No Was dental information given to patient?: Patient has dentist HPI HPI Comments History of Present Illness Details The patient is a 69-year-old male presenting with hemorrhoids and associated symptomatology. He has been previously treated with proctosol cream after being diagnosed via colon examination. He reports discomfort due to hemorrhoids and attempts at management with topical applications. In addition to these primary concerns, he is experiencing urinary issues, specifically urine dilatation, although he currently lacks a confirmed diagnosis for this presentation. The patient has a past finding of elevated PSA levels noted as 4.something, prompting further inquiry into prostate health, although prior examinations were reportedly normal. Concomitantly, the patient exhibits low hemoglobin levels, reported at 11.8, with no associated active bleeding. There is mention of elevated LDL cholesterol in the patient's laboratory results, which require attention. Although there has been past consideration for vitamin deficiencies, these have been complicated by intolerance due to gastric discomfort. The patient leads a generally prudent lifestyle with rare alcohol consumption and no history of smoking. GERD stable with PPIs. [facility] Medical History (Updated 12/27/24 @ 20:10 by Dimple Wilde MD) Abdominal distention Class 1 obesity with body mass index (BMI) of 30.0 to 30.9 in adult Hypovitaminosis D Right knee pain Left knee pain Colon polyps Cervical stenosis of spine BPH (benign prostatic hyperplasia) Pure hypercholesterolemia GERD (gastroesophageal reflux disease) Surgical History History of esophagogastroduodenoscopy (EGD) History of umbilical hernia repair History of bunionectomy History of appendectomy Family History Father Diabetes Mother Hypertension Maternal Grandmother Diabetes Paternal Grandmother Stroke Social History Household Members: Family Household Members Other:: lives with mother Housing: House Alcohol intake: current Alcohol intake frequency: a few times a month Alcohol type: beer Patient Tobacco Use Status: Current someday Tobacco user e-Cigarette/Vaping Use: Never Used Second Hand Smoke Exposure: No service: No Current occupational status: retired 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 1. Little interest or pleasure in doing things: not at all 2. Feeling down, depressed, or hopeless: not at all 3. Trouble falling or staying asleep, or sleeping too much: not at all 4. Feeling tired or having little energy: not at all 5. Poor appetite or overeating: not at all 6. Feeling bad about yourself - or that you are a failure or have let yourself or your family down: not at all 7. Trouble concentrating on things, such as reading the newspaper or watching television: not at all 8. Moving or speaking so slowly that other people could have noticed. Or the opposite - being so fidgety or restless that you have been moving around a lot more than usual: not at all 9. Thoughts that you would be better off or of hurting yourself in some way: not at all Total score: 0 Depression Screening Interpretation: Negative Depression Screening Done: Yes 72009 - PHQ-9 Billing: Yes Source: Developed by Drs. Vitaly Wilson, Gia Reyes, Jaun De Leon and colleagues, with an educational sho from [employer]. Thrive Questionnaire Date Thrive assessed: 12/27/24 I am a: Patient What is your living situation today?: I have a steady place to live Within the past 12 months, did the food you bought not last and you didn't have the money to get more?: Never true Within the past 12 months, did you worry whether your food would run out before you got money to buy more?: Never true Do you have trouble paying for medicines?: No Do you have trouble getting transportation to medical appointments?: No Do you have trouble paying your heating and electricity bill?: No Do you have trouble taking care of your child, family member or friend?: No Do you have trouble with day-to-day activities such as bathing, preparing meals, shopping, managing finances, etc.?: No Are you currently unemployed and looking for a job?: No Are you interested in more education?: No Please select the resources that you would like help with: None Currently or been in a relationship where the following occur: No concerns reported THRIVE Score: 0 AUDIT C Alcohol Use Questionnaire (AUDIT-C) 1. How often do you have a drink containing alcohol?: 2-4 times a month 2. How many drinks containing alcohol do you have on a typical day when you are drinking?: 1 or 2 3. How often do you have six or more drinks on one occasion?: Never Total Score: 2 Score Reviewed/Action Taken: No ANNALISE-7 AMB Questionnaire ANNALISE-7 Date ANNALISE - 7 assessed: 12/27/24 Feeling nervous, anxious, or on edge: 0 = Not at all Not being able to stop or control worryin = Not at all Worrying too much about different things: 0 = Not at all Trouble relaxin = Not at all Being so restless that it is hard to sit still: 0 = Not at all Becoming easily annoyed or irritable: 0 = Not at all Feeling afraid as if something awful might happen: 0 = Not at all Total ANNALISE-7 score (0-4 normal; 5-9 mild; 10-14 moderate; 15-21 severe): 0 Source: Developed by Drs. Vitaly Wilson, Gia Reyes, Juan De Leon and colleagues, with an educational sho from [employer]. ANNALISE-7 Assessment Billing ANNALISE-7 Assessment Tool: ANNALISE-7 Assessment 01910 Review of Systems Const All systems reviewed & are unremarkable except as noted in HPI and below Card Denies chest pain at rest, Denies chest pain with activity, Denies edema, Denies irregular heart rhythm, Denies claudication, Denies dyspnea, Denies dyspnea on exertion, Denies orthopnea, Denies paroxysmal nocturnal dyspnea and Denies slow heart rate Resp Denies cough, Denies dyspnea and Denies dyspnea on exertion GI Denies abdominal pain, Denies change in bowel habits, Denies excessive flatus, Denies nausea and Denies vomiting Denies urinary hesitancy, Denies urinary incontinence and Denies urinary urgency Neuro Denies lack of coordination Physical exam (Primary Care) Vital Signs: Last Vital Signs BP 118/74 12/27/24 17:00 BMI result Body Mass Index 30.1 BMI Assessment/Plan discussion: High BMI High, discussed plan: lifestyle, weight reduction, dietary and physical activity Tobacco/Smoking Status: Tobacco use Status Tobacco use date assessed 12/27/24 12/27/24 17:05 Patient Tobacco Use Status Current someday Tobacco 12/27/24 17:05 e-Cigarette/Vaping Use Never Used 12/27/24 17:05 PHQ-9: PHQ-9 Score PHQ-9: Total score 0 12/27/24 17:22 Depression Screening Interpretation: Negative Thrive Assessment: Date of Thrive Assessment Date Thrive assessed 12/27/24 12/27/24 17:05 Currently or been in a relationship where the following occur: No concerns reported Neck Neck: Yes normal visual inspection and Yes supple Resp Effort & Inspection: normal respiratory effort Auscultation: clear to auscultation bilaterally Cardio Jugular venous distension: no JVD Rate: regular rate Rhythm: regular rhythm Heart sounds: S1 normal heart sound present and S2 normal heart sound present Extrem General: Yes full ROM Coding Level of Care Code Est Pt Level 4 (12809) Complex EM visit Add On G2211 Diagnoses Elevated PSA R97.20 Internal hemorrhoid K64.8 Hypovitaminosis D E55.9 Gastroesophageal reflux disease, unspecified whether esophagitis present K21.9 Esophagitis presence: esophagitis presence not specified Pure hypercholesterolemia E78.00 Anemia D64.9 Additional Codes ANNALISE-7 Assessment Billing - ANNALISE-7 Assessment Tool: ANNALISE-7 Assessment 23778 ([id number]) PHQ-9 - 43058 - PHQ-9 Billing: Yes ([id number]) Time Spent (min) 23 Assessment & Plan Assessment & Plan (1) Elevated PSA: Code(s): R97.20 - Elevated prostate specific antigen [PSA] Category: Medical (2) Internal hemorrhoid: Code(s): K64.8 - Other hemorrhoids Category: Surgical (3) Hypovitaminosis D: Code(s): E55.9 - Vitamin D deficiency, unspecified Category: Medical (4) GERD (gastroesophageal reflux disease): Code(s): K21.9 - Gastro-esophageal reflux disease without esophagitis Category: Medical Qualifiers: Esophagitis presence: esophagitis presence not specified Qualified Code(s): K21.9 - Gastro-esophageal reflux disease without esophagitis (5) Pure hypercholesterolemia: Code(s): E78.00 - Pure hypercholesterolemia, unspecified Category: Medical (6) Anemia: Code(s): D64.9 - Anemia, unspecified Category: Medical Plan The plan includes continuation of proctosol cream treatment for hemorrhoids. Repeat testing of PSA levels is planned, along with potential urology consultation to address urinary concerns. Low hemoglobin will be monitored, with further laboratory investigations if necessary. Management of elevated LDL cholesterol includes encouraging nocturnal intake of cholesterol-lowering medications, suggesting dietary adjustments, and personal lifestyle habits. These comprehensive management strategies aim to concurrently address symptomatology, laboratory findings, and overall patient health. Patient was informed and verbally consented to the use of an ambient scribe for clinic note documentation during this visit. Discussions with the patient highlighted the focus on symptom management for hemorrhoids with ongoing topical therapy. Elevated PSA levels warranted repeating the test to monitor prostate health, with recommendations for a urology referral to evaluate urinary symptoms further. Emphasis was placed on low hemoglobin and the need to exclude potential anemia sources, including dietary causes. Addressing the patient's elevated LDL cholesterol through lifestyle changes, diet, and medications was also discussed. The patient understood the recommendations and expressed willingness to proceed with proposed interventions. Follow-up for repeat test results and potential further interventions were acknowledged. Orders: Orders PSA,Total (Free>4and<10) Today R35.1 - Nocturia Vitamin D 25-OH Total Today E55.9 - Vitamin D deficiency, unspecified Vitamin B12 and Folate Today E53.8 - Deficiency of other specified B group vitamins Complete Blood Count Auto Diff Today D64.9 - Anemia, unspecified IRON PROFILE Today D64.9 - Anemia, unspecified Referrals Urology Referral R97.20 - Elevated prostate specific antigen [PSA] Medications: New hydrocortisone 2.5% (Proctosol HC) 1 appl MD BID-QID PRN 30 grams 1RF hemorrhoids 30 days rosuvastatin 10 mg PO BEDTIME 90 tabs 1RF 90 days Patient Instructions: - Continue using proctosol cream as directed for hemorrhoids. - Schedule and attend follow-up appointments for repeat PSA testing and hematology lab work. - Consider consulting a urologist for urinary concerns. - Implement dietary changes to help manage elevated cholesterol levels. - Take cholesterol medication at night for better management, as discussed. - Contact healthcare provider if symptoms worsen or new symptoms appear.
[2024-12-27 17:00] VITALS: BP 118/74; BMI 30.1
--- OUTSIDE RECORDS SUMMARY | 2024-12-27 18:09 | XMS_ITS | Encounter Summary ---
Author Organization [facility] Address [address] [place] [address] Care Team Providers Care Rn Radiation Oncology Name Role Phone Unavailable Primary Care Provider Unavailabl e Encounter Details Date Type Department Care Team (Latest Contact Info) Description 06/13/2019 Abstract [facility] CONVERSIONS Dental, Provider, DDS Social History Tobacco Use Types Packs/Day Years Used Date Smoking Tobacco: Never Assessed Sex and Gender Information Value Date Recorded Sex Assigned at Male 08/09/2022 10:16 AM EDT Legal Sex Male 10:16 AM EDT Gender Identity Choose not to disclose 10:16 AM EDT Sexual Orientation Choose not to disclose 2021 10:16 AM EDT documented as of this encounter Plan of Treatment Not on file documented as of this encounter Visit Diagnoses Not on filedocumented in this encounter
--- OUTSIDE RECORDS SUMMARY | 2024-12-27 18:09 | XMS_ITS ---
Author Organization [facility] Address [address] [place] [address] Care Team Providers Care Antique Finisher Name Role Phone Dimple Mcbride Primary Care Provider Unavailab Vitaly Ortega [phone] REASON FOR VISIT recall colonoscopy Encounters Encounter Location Date Provider Diagnosis [facility] [address] [place] [phone] 10/11/2023 Vitaly Ramsay Plan Of Treatment No Information Progress Notes * NIRMAL GLASGOWIODOB:[birth year] (69 yo M)Acc No.[id number]:10/11/2023 Progress Notes Patient:?JANNETH GLASGOW Provider:?Vitaly Ramsay MD :1955???Age:68 Y???Sex:Male Kuldip e:10/11/2023 Address:[address] [place] [address], [place] Pcp:Dimple Wilde Subjective: * Chief Complaints: * ???1. Recall colonoscopy. * Medical History:? Objective: * Vitals:? Assessment: Plan: * Treatment: * * The named appointment provid er may or may not be the originator of this progress note, and it is not deemed complete until electronically signed by the appointment provider. Sign off status: Pending * Provider:?Vitaly Ramsay MD Date:? 024 Generated for Mateo cerna/Cassandra/Zaneitting on:?12/27/2024 06:09 PM EDT
--- OUTSIDE RECORDS SUMMARY | 2024-12-27 18:09 | XMS_ITS | Clinical Summary ---
Author Organization [employer] Address [address] [facility] 7t [place] [address] Care Team Providers Care Pecan Mallow Dipper Name Role Phone Unavailable Primary Care Provider Unavailabl e Social History Tobacco Use Types Packs/Day Years Used Date Smoking Tobacco: Never Assessed Sex and Gender Information Value Date Recorded Sex Assigned at Male 08/09/2022 10:16 AM EDT Legal Sex Male 10:16 AM EDT Gender Identity Choose not to disclose 10:16 AM EDT Sexual Orientation Choose not to disclose 2021 10:16 AM EDT Plan of Treatment Health Maintenance Due Date Last Done Comments CT Colonography 1955 Colonoscopy 1955 Colorectal Cancer Screening 1955 Depression Screening 1955 FIT DNA/Cologuard 1955 FIT 1955 FOBT 1955 Lipid Panel 1955 SDOH Screening 1955 Sigmoidoscopy 1955 Alcohol/Substance Use Screening 1967 Tobacco Screening 1967 Hepatitis C Screening 1973 Zoster Vaccines (1 of 2) 2005 Dental Oral Exam 12/12/2019 06/12/2019, , 11/18/2015, Additional history exists Dental Prophylaxis 12/13/2019 06/13/2019, 0 07/07/2017, 07/03/2015, Additional history exists Dental X-Ray: Bitewings 06/13/2020 06/12/20 19, 07/29/2017, 11/18/2015, Additional history exists Dental X-Ray: Full Mouth 07/30/2020 07/29/2017, 01/09 Pneumococcal Vaccine: 50+ Years (2 of 2 - PCV) 04/29/2021 04/29/2020 COVID-19 Vaccine ( season) 2024 08/17/2021, 02/04/2021, 01/14/2021 Influenza Vaccine (#1) 2024 2, 11/18/2017, 06/28/2013, Additional history exists RSV Patients and Patients Aged 60 years or older (1 - 1-dose 75+ series) 2030 DTaP/Tdap/Td Vaccines (3 - Td or Tdap) 03/02/2031 03/02/2021, 11/02/2007 HIB Vaccines Aged Out No longer eligi ble based on patient's age to complete this topic HPV Vaccines Aged Out No longer eligi ble based on patient's age to complete this topic Hepatitis A Vaccines Aged Out No long er eligible based on patient's age to complete this topic Hepatitis B Vaccines Aged Out No long er eligible based on patient's age to complete this topic IPV Vaccines Aged Out No longer eligi ble based on patient's age to complete this topic Meningococcal Vaccine Aged Out No pramod otto eligible based on patient's age to complete this topic RSV under 20 months Aged Out No longe r eligible based on patient's age to complete this topic Rotavirus Vaccines Aged Out No longer eligible based on patient's age to complete this topic Procedures Procedure Name Priority Date/Time Associated Diagnosis Comments PROPHYLAXIS - ADULT Routine 06/13/2019 1 2:00 AM EDT BITEWINGS - 4 RADIOGRAPHIC IMAGES Routine 06/12/2019 12:00 AM EDT PERIODIC ORAL EVALUATION - ESTABLISHED PATIENT Routine 06/12/2019 12:00 AM EDT INTRAORAL - COMPLETE SERIES OF RADIOGRAPHIC IMAGES Routine 07/29/2017 12:00 AM EDT from Last 3 Months or Most Recently Relevant to Health Maintenance Insurance [address] [place] [address] DENTAL - HSN PARTIAL (MEDICAID) * Guarantor: Igor Carey Account Type Relation to Patient Date of Phone Billing Address Personal/Family Self [address] [place] [address]
--- OUTSIDE RECORDS SUMMARY | 2024-12-27 18:09 | XMS_ITS | Patient Health Record ---
Author Organization [facility] Address [address] [place] [phone] Care Team Providers Care Drilling Machine Runner Name Role Phone Dimple Mcbride Primary Care Provider Vitaly Lucero Unavailable [phone] Reason For Referral No Information Medications Medication SIG (Take, Route, Fr equency, Duration) Notes Start Date End Date Status Omeprazole 20 MG 1 capsule Orally Once a day Active Immunizations Vaccine Route Administration Date Status Comme nts Influenza Unknown 07/10/2018 Administered Social History Tobacco Use: Social History Observation Description Date Details (start date - stop date) Never Smoker NA - NA Tobacco Use/Smoking Question Answer Notes Patient is a nonsmoker Alcohol Screen Question Answer Notes Did you have a drink contain ing alcohol in the past year? Yes How often did you have a dri nk containing alcohol in the past year? Monthly or less (1 point) How many drinks did you have on a typical day when you were drinking in the past year? 1 or 2 drinks (0 point) How often did you have 6 or more drinks on one occasion in the past year? Never (0 point) Points 1 Interpretation Negative Section Notes: Nonsmoker; no sig alcohol Problems Problem Type SNOMED Code ICD Code Onset Dates Problem Status W/U Status Risk Notes Problem 611093811 Encounter for screening for malignant neoplasm of colon (Z12.11) Active confirmed Problem 409131865 History of colon polyps (Z86.010) Active confirmed Problem [id number] Pre-procedural examination (Z01.818) Active confirmed Plan Of Treatment Pending Test Test Name Order Date GI BIOPSY 09/25/2018 Future Test Test Name Order Date COLONOSCOPY 08/17/2018 Insurance Providers Payer Name Payer Address Payer Phone Subscriber Number Group Number Insured Name Patient Relationship to Insured Coverage Start Date Coverage End Date [facility] [address] [place] [phone] [id number] GLASGOWJANNETH MILLAN Self - patient is the insured MEDICARE OF [place] [address] [place] [address] [id number] JANNETH GLASGOW Self - patient is the insured MEDICAID OF [facility] [address] [place] [address] [id number] JANNETH GLASGOW Self - patient is the insured Medical (General) History Medical History History ICD Code Denies [place],DM,CVA,Lung disease,renal dise ase Colonoscopy approx 2006 at [facility] with removal of 3 polyps; F/U colonoscopy in 2010 at [facility] was negative--all by his report GERD--uses omeprazole prn Surgical History Surgery Date(Month/Year) Appendectomy 1974 Umbilical Hernia 1994
--- OUTSIDE RECORDS SUMMARY | 2024-12-27 18:10 | XMS_ITS ---
Author Organization [facility] Address [address] [place] [address] Care Team Providers Care Audit Director Name Role Phone Dimple Mcbride Primary Care Provider Unavailab Vitaly Ortega [phone] REASON FOR VISIT cancel OV Encounters Encounter Location Date Provider Diagnosis [facility] [address] [place] [phone] 09/16/2023 Vitaly Ramsay Plan Of Treatment No Information Progress Notes * RHINA GLASGOWOB:[birth year] (68 yo M)Acc No.[id number]:09/16/2023 Patient:?GLASGOWNIRMALIO :1955???Age:68 Y???Sex:Male Address:[address] [place] [address] [address] , [place], [address] * true * Date:? Generated for Phoebei nehemiah/Cassandra/eTransmitting on:?12/27/2024 06:09 PM EDT
== END 2024-12-27 17:26 | disposition home or self-care (01) ==
LOC: HO.HMCH 16:55
PROVIDERS: PCP Internal Medicine; Visit Provider Internal Medicine
DX: R97.20 Elevated prostate specific antigen [PSA] (principal); K64.8 Other hemorrhoids; E55.9 Vitamin D deficiency, unspecified; K21.9 Gastro-esophageal reflux disease without esophagitis; E78.00 Pure hypercholesterolemia, unspecified; D64.9 Anemia, unspecified

== ENCOUNTER → 2024-12-27 16:54 | Outpatient (BNVA) | payer MEDICARE, SELFPAY | PROVIDERS: PCP Internal Medicine; Visit Provider Internal Medicine | DX: R97.20 Elevated prostate specific antigen [PSA] (principal); K64.8 Other hemorrhoids; E55.9 Vitamin D deficiency, unspecified; K21.9 Gastro-esophageal reflux disease without esophagitis; E78.00 Pure hypercholesterolemia, unspecified; D64.9 Anemia, unspecified | CPT/HCPCS: 96127; 99212 ==

== ENCOUNTER 2025-02-25 13:48 | Outpatient (AMB) | payer MEDICARE, MEDICAID, SELFPAY ==
--- OUTSIDE RECORDS SUMMARY | 2025-02-25 13:52 | XMS_ITS | Patient Health Record ---
Author Organization [facility] Address [address] [place] [address] Care Team Providers Care Investigative Analyst Name Role Phone Dimple Mcbride Primary Care Provider Vitaly Lucero Unavailable [phone] Reason For Referral No Information Medications Medication [...] Problem Status W/U Status Risk Notes Problem [id number] Encounter for screening for malignant neoplasm of colon (Z12.11) Active confirmed Problem 519750864 History of colon polyps (Z86.010) Active confirmed Problem [id number] Pre-procedural examination (Z01.818) Active confirmed Plan Of Treatment Pending Test Test Name Order Date GI BIOPSY 09/25/2018 Future Test Test Name Order Date COLONOSCOPY 08/17/2018 Insurance Providers Payer Name Payer Address Payer Phone Subscriber Number Group Number Insured Name Patient Relationship to Insured Coverage Start Date Coverage End Date [facility] [address] [place] [address] [phone] [id number] GLASGOWJANNETH MILLAN Self - patient is the insured MEDICARE OF [place] [address] [place] [address] [id number] JANNETH GLASGOW Self - patient is the insured MEDICAID OF [facility] [address] [place] [phone] [id number] JANNETH GLASGOW Self - patient is the insured Medical (General) History Medical History History ICD Code Denies [place],DM,CVA,Lung disease,renal dise ase Colonoscopy approx 2006 at [facility] with removal of 3 polyps; F/U colonoscopy in 2010 at [facility] was negative--all by his report GERD--uses omeprazole prn Surgical History Surgery Date(Month/Year) Appendectomy 1974 Umbilical Hernia 1994
--- OUTSIDE RECORDS SUMMARY | 2025-02-25 13:52 | XMS_ITS | Encounter Summary ---
Author Organization [employer] [facility] Address [address] 7[address] [place] [address] Care Team Providers Care Road Cleaner Name Role Phone Unavailable Primary Care Provider Unavailabl e Encounter Details Date Type Department Care Team (Latest Contact Info) Description 06/13/2019 Abstract [facility] Dental, Provider, DDS Social History Tobacco [...]
--- OUTSIDE RECORDS SUMMARY | 2025-02-25 13:52 | XMS_ITS ---
Author Organization [facility] Address [address] [place] [address] Care Team Providers Care Take Down Sorter Name Role Phone Dimple Mcbride Primary Care Provider Unavailab Vitaly Ortega [phone] REASON FOR VISIT cancel OV Encounters Encounter Location Date Provider Diagnosis [facility] [address] [place] [phone] 09/16/2023 Vitaly Ramsay Plan Of Treatment No Information Progress Notes * RHINA GLASGOWOB:[birth year] (68 yo M)Acc No.[id number]:09/16/2023 Patient:?GLASGOWNIRMALIO :1955???Age:68 Y???Sex:Male Address:[address] [place] [address] [address] , [place], [address] * true * Date:? Generated for Mateo cerna/Cassandra/eTransmitting on:?02/25/2025 01:52 PM EDT
--- OUTSIDE RECORDS SUMMARY | 2025-02-25 13:52 | XMS_ITS ---
Author Organization [facility] Address [address] [place] [address] Care Team Providers Care Oval Or Circular Glass Cutter Name Role Phone Dimple Mcbride Primary Care Provider Unavailab Vitaly Ortega [phone] REASON FOR VISIT recall colonoscopy Encounters Encounter Location Date Provider Diagnosis [facility] [address] [place] [phone] 10/11/2023 Vitaly Ramsay Plan Of Treatment No Information Progress Notes * NIRMAL GLASGOWIODOB:[birth year] (70 yo M)Acc No.[id number]:10/11/2023 Progress Notes Patient:?JANNETH GLASGOW Provider:?Vitaly Ramsay MD :1955???Age:68 Y???Sex:Male Kuldip e:10/11/2023 Address:[address] [place] [address] Pcp:Dimple Wilde Subjective: * Chief Complaints: * [...] MD Date:? 024 Generated for Mateo cerna/Cassandra/Zaneitting on:?02/25/2025 01:52 PM EDT
--- OUTSIDE RECORDS SUMMARY | 2025-02-25 13:52 | XMS_ITS | Clinical Summary ---
Author Organization [employer] Address [address] 7[address] [place] [address] Care Team Providers Care Form Designer Name Role Phone Unavailable Primary Care Provider [...] patient's age to complete this topic Meningococcal B Vaccine Aged Out No l onger eligible based on patient's age to complete [...] Most Recently Relevant to Health Maintenance Insurance [address] [place] [address] DENTAL - HSN PARTIAL (MEDICAID) * Guarantor: Igor Carey Account Type Relation to Patient Date of Phone Billing Address Personal/Family Self [address] [place] [phone]
--- NOTE | 2025-02-25 14:07 | MHC.OFFVIS ---
Intake Visit Reasons: rising PSA Intake Note: New patient presents today for initial visit for rising PSA 05/10/23 PSA: 3.25 Urology Medication:None Blood Thinner:None Antibiotic Allergies:None PVR:59ml Agile Qa Tester Required: Yes Information Interpreted: non-clinical & clinical Allergies No Known Allergies Allergy (Verified 02/25/25 14:17) [facility] Medical History Abdominal distention Class 1 obesity with body mass index (BMI) of 30.0 to 30.9 in adult Hypovitaminosis D Right knee pain Left knee pain Colon polyps Cervical stenosis of spine BPH (benign prostatic hyperplasia) Pure hypercholesterolemia GERD (gastroesophageal reflux disease) Surgical History History of esophagogastroduodenoscopy (EGD) History of umbilical hernia repair History of bunionectomy History of appendectomy Family History Father Diabetes Mother Hypertension Maternal Grandmother Diabetes Paternal Grandmother Stroke Social History Household Members: Family Household Members Other:: lives with mother Housing: House Alcohol intake: current Alcohol intake frequency: a few times a month Alcohol type: beer Patient Tobacco Use Status: Current someday Tobacco user e-Cigarette/Vaping Use: Never Used Second Hand Smoke Exposure: No service: No Current occupational status: retired 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 Cognitive needs: No Hearing needs: No Vision needs: No Results AMB Urinalysis, Automated UA Leukoctes 0 Gia/uL Last Edit by Patricia Logan on 02/25/25 16:39 UA Nitrite Negative Last Edit by Patricia Logan on 02/25/25 16:39 UA Urobilinogen 3.5 mg/dL Last Edit by Patricia Logan on 02/25/25 16:39 UA Protein 0 mg/dL Last Edit by Patricia Logan on 02/25/25 16:39 UA pH 6.0 Last Edit by Patricia Logan on 02/25/25 16:39 UA Blood 0 Julio/uL Last Edit by Patricia Logan on 02/25/25 16:39 UA Specific [place] 1.015 Last Edit by Patricia Logan on 02/25/25 16:39 UA Ketone Negative Last Edit by Patricia Logan on 02/25/25 16:39 UA Bilirubin 0 mg/dL Last Edit by Patricia Logan on 02/25/25 16:39 UA Glucose 0 mg/dL Last Edit by Patricia Logan on 02/25/25 16:39 Assessment & Plan Assessment & Plan (1) Elevated PSA: Code(s): R97.20 - Elevated prostate specific antigen [PSA] Category: Medical (2) BPH loc w urin obs/LUTS: Code(s): N40.1 - Benign prostatic hyperplasia with lower urinary tract symptoms Category: Medical Orders: Orders PSA,Total (Free>4and<10) Today N40.1 - Benign prostatic hyperplasia with lower urinary tract symptoms, R97.20 - Elevated prostate specific antigen [PSA] US retroperitoneal comp Today N40.1 - Benign prostatic hyperplasia with lower urinary tract symptoms AMB Urinalysis Automated Today Z13.9 - Encounter for screening, unspecified Coding Diagnoses Elevated PSA R97.20 BPH loc w urin obs/LUTS N40.1
== END 2025-02-25 15:04 | disposition home or self-care (01) ==
LOC: HO.HUSH 13:49
PROVIDERS: PCP Internal Medicine; Visit Provider Urology
DX: Z13.9 Encounter for screening, unspecified (principal)

== ENCOUNTER → 2025-02-25 13:48 | Outpatient (BNVA) | payer MEDICARE, SELFPAY | PROVIDERS: PCP Internal Medicine; Visit Provider Urology | DX: R97.20 Elevated prostate specific antigen [PSA] (principal); N40.1 Benign prostatic hyperplasia with lower urinary tract symptoms; R35.1 Nocturia | CPT/HCPCS: 81003; 99202 ==

== ENCOUNTER 2025-04-15 12:22 | Outpatient (REF) | payer MEDICARE, SELFPAY ==
--- NOTE | ~2025-04-15 | US_ITS ---
CLINICAL HISTORY: N40.1 - Benign prostatic hyperplasia with lower urinary tract symptoms US retroperitoneum Comparison: None Findings: Right kidney normal size and echotexture, 12.5 cm length. No hydronephrosis. Normal color flow. Left kidney normal size and echotexture, 12.0cm in length. No hydronephrosis. Normal color flow. Bilateral kidney cortex thickness and echotexture is normal. Urinary bladder is unremarkable. Prevoid volume 390mL. Postvoid volume mL is 127. Ureteral jets are visualized bilaterally The prostate is enlarged with volume of 46.6 mL. Impression: Prostate enlargement Otherwise normal retroperitoneal ultrasound This document has been electronically signed by: Leonel Lewis MD on 04/15/2025 22:05:46
--- OUTSIDE RECORDS SUMMARY | 2025-04-15 13:02 | XMS_ITS | Encounter Summary ---
Author Organization [facility] Address [address] [place] [address] Care Team Providers Care Cook Helper Pastry Name Role Phone Unavailable Primary Care Provider Unavailabl e Encounter Details Date Type Department Care Team (Latest Contact Info) Description 06/13/2019 Abstract [facility] CONVERSIONS Dental, Provider, DDS Social History [...]
--- OUTSIDE RECORDS SUMMARY | 2025-04-15 13:02 | XMS_ITS | Patient Health Record ---
Author Organization [facility] Address [address] [place] [phone] Care Team Providers Care Claim Specialist Name Role Phone Dimple Mcbride Primary Care Provider Vitaly Lucero Unavailable [phone] Reason For Referral No Information Medications Medication [...] Problem Status W/U Status Risk Notes Problem 531572679 Encounter for screening for malignant neoplasm of colon (Z12.11) Active confirmed Problem 745059501 History of colon polyps (Z86.010) Active confirmed Problem 256730645798595 Pre-procedural examination (Z01.818) Active confirmed Plan Of Treatment Pending Test Test Name Order Date GI BIOPSY 09/25/2018 Future Test Test Name Order Date COLONOSCOPY 08/17/2018 Insurance Providers Payer Name Payer Address Payer Phone Subscriber Number Group Number Insured Name Patient Relationship to Insured Coverage Start Date Coverage End Date [facility] [address] [place] [phone] [id number] GLASGOWJANNETH MILLAN Self - patient is the insured MEDICARE OF [place] [address] [place] [address] [id number] JANNETH GLASGOW Self - patient is the insured MEDICAID OF [facility] [address] [place] [phone] [id number] JANNETH GLASGOW Self - patient is the insured Medical (General) History Medical History History ICD Code Denies [place],DM,CVA,Lung disease,renal dise ase Colonoscopy approx 2006 at [facility] with removal of 3 polyps; F/U colonoscopy in 2010 at [facility] was negative--all by his report GERD--uses omeprazole prn Surgical History Surgery Date(Month/Year) Appendectomy 1974 Umbilical Hernia 1994
== END 2025-04-15 12:23 | disposition home or self-care (01) ==
LOC: HO.US 12:22
PROVIDERS: PCP Internal Medicine; Visit Provider Urology
DX: N40.1 Benign prostatic hyperplasia with lower urinary tract symptoms (principal)
CPT/HCPCS: 76770

== ENCOUNTER → 2025-04-15 12:25 | Outpatient (BNV) | payer MEDICARE, SELFPAY | PROVIDERS: PCP Internal Medicine; Visit Provider Radiology Diagnostic Radiology | DX: N40.1 Benign prostatic hyperplasia with lower urinary tract symptoms (principal) | CPT/HCPCS: 76770 ==

== ENCOUNTER 2025-04-16 08:33 | Outpatient (REF) | payer MEDICARE, SELFPAY ==
[2025-04-16 08:43] LABS: MANUAL DIFF FLAG NO
--- OUTSIDE RECORDS SUMMARY | 2025-04-16 08:44 | XMS_ITS | Encounter Summary ---
Author Organization [employer] [facility] Address [address] 7[address] [place] [address] Care Team Providers Care Rn Bone Marrow Transplant Name Role Phone Unavailable Primary Care Provider Unavailabl e Encounter Details Date Type Department Care Team (Latest Contact Info) Description 06/13/2019 Abstract [facility] CONVERSIONS Dental, Provider, DDS Social History [...]
--- OUTSIDE RECORDS SUMMARY | 2025-04-16 08:44 | XMS_ITS | Patient Health Record ---
Author Organization [facility] Address [address] [place] [address] Care Team Providers Care Military Technology Manager Name Role Phone Dimple Mcbride Primary Care Provider Vitaly Lucero Unavailable [phone] Reason For Referral No Information Medications Medication [...] Problem Status W/U Status Risk Notes Problem 037946294 Encounter for screening for malignant neoplasm of colon (Z12.11) Active confirmed Problem 759938607 History of colon polyps (Z86.010) Active confirmed Problem 994507364553945 Pre-procedural examination (Z01.818) Active confirmed Plan Of Treatment Pending Test Test Name Order Date GI BIOPSY 09/25/2018 Future Test Test Name Order Date COLONOSCOPY 08/17/2018 Insurance Providers Payer Name Payer Address Payer Phone Subscriber Number Group Number Insured Name Patient Relationship to Insured Coverage Start Date Coverage End Date [facility] [address] [place] [phone] [phone] [id number] GLASGOWJANNETH MILLAN Self - patient is the insured MEDICARE OF [place] [address] [place] [address] [id number] JANNETH GLASGOW Self - patient is the insured MEDICAID OF [facility] [address] [place] [phone] [id number] JANNETH GLASGOW Self - patient is the insured Medical (General) History Medical History History ICD Code Denies [place],DM,CVA,Lung disease,renal dise ase Colonoscopy approx 2006 at [facility] with removal of 3 polyps; F/U colonoscopy in 2010 at [facility] was negative--all by his report GERD--uses omeprazole prn Surgical History Surgery Date(Month/Year) Appendectomy 1974 Umbilical Hernia 1994
[2025-04-16 08:57] LABS: Hematocrit 36.8 % (42.0-52.0); Hemoglobin 12.5 g/dl (14.0-18.0); Imm Gran Abs Auto 0.01 X10*3/uL (0.00-0.03); Imm Gran Pct Auto 0.2 % (0.0-0.4); Lymphocytes Absolute Auto 2.1 X10*3/uL (1.2-4.9); Mean Corpuscular HGB Conc 34.0 g/dl (31.0-36.0); Mean Corpuscular Hemoglobin 29.1 pg (27.0-33.0); Mean Corpuscular Volume 85.6 fL (80.0-98.0); NRBC Abs Auto 0.000 X10*3/uL (0.0-0.012); NRBC Pct Auto 0.0 /100WBC (0.0-0.2); Platelet Count 183 X10*3/uL (160-400); Red Blood Count 4.30 X10*6/uL (4.60-5.80); White Blood Count 5.6 X10*3/uL (4.8-10.8)
[2025-04-16 09:42] LABS: Alanine Aminotransferase 23 U/L (0-40); Albumin Level 4.2 g/dL (3.5-5.0); Alkaline Phosphatase 76 U/L (39-117); Anion Gap 9 (12-20); Aspartate Amino Transferase 22 U/L (5-37); Blood Urea Nitrogen 12 mg/dL (9-16); Calcium 9.1 mg/dL (8.4-10.2); Carbon Dioxide 28 mmol/L (22-29); Chloride 109 mmol/L (96-108); Cholesterol 149 mg/dL (<200); Estimated Glomerular Filt Rate > 60; HDL Cholesterol 47 mg/dL (>40); Iron 84 mcg/dL (45-160); Percent Iron Saturation 33 % (15-50); Potassium 4.1 mmol/L (3.3-5.1); Sodium 142 mmol/L (135-145); Total Iron Binding Capacity 255 mcg/dL (228-428); Total Protein 7.1 g/dL (6.5-8.0); Triglycerides 61 mg/dL (<150); Unsaturated Iron Binding 171 ug/dL
[2025-04-16 10:00] LABS: PSA,Total (Free>4and<10) 3.22 ng/mL (0.00-4.00)
[2025-04-16 10:13] LABS: Folate 12.0 ng/mL (> or = 4.0); Vitamin B12 432 pg/mL (200-900)
== END 2025-04-16 08:34 | disposition home or self-care (01) ==
LOC: HO.LAB 08:33
PROVIDERS: PCP Internal Medicine; Visit Provider Urology
DX: Z00.00 Encounter for general adult medical examination without abnormal findings (principal); R97.20 Elevated prostate specific antigen [PSA]; N40.1 Benign prostatic hyperplasia with lower urinary tract symptoms; R35.1 Nocturia; D64.9 Anemia, unspecified; E55.9 Vitamin D deficiency, unspecified; E53.8 Deficiency of other specified B group vitamins
CPT/HCPCS: 36415; 80053; 80061; 82306; 82607; 82746; 83540; 84153; 85025

== ENCOUNTER 2025-04-22 13:50 | Outpatient (AMB) | payer MEDICARE, SELFPAY ==
--- NOTE | 2025-04-21 23:01 | MHC.OFFVIS ---
Intake Visit Reasons: 8w/US/PSA Intake Note: Patient presents today for 8w/US/PSA Renal US 04/15/25 04/16/25 PSA: 3.22 Urology Medication:None Blood Thinner:None Antibiotic Allergies:None PVR:130ml Treatment Specialist Required: Yes Information Interpreted: non-clinical & clinical Allergies No Known Allergies Allergy (Verified 04/22/25 14:50) HPI Comments Details: 04/21/25--The patient is a 70-year-old male presenting with management concerns regarding prostate health. PSA 04/16/25-- 3.22 US renal 04/15/25--Kidneys WNL. Urinary bladder is unremarkable. Prevoid volume 390mL. Postvoid volume mL is 127.Ureteral jets are visualized bilaterally The prostate is enlarged with volume of 46.6 mL. History of Present Illness - The patient is a 70-year-old male presenting for follow-up of Benign Prostatic Hyperplasia (BPH). - The patient has a history of BPH with a previously elevated PSA level of 4, which has decreased to 3.22. - The patient underwent urinalysis and ultrasound, which showed no blood, infection, or glucose in the urine, and a mild to moderately enlarged prostate. - The patient is currently on medication for BPH and has been adherent to the prescribed regimen. - The patient has been advised to continue medication and will have a follow-up PSA test in six months. - The patient typically travels to the [facility] during the holiday season and plans to return by November or December for follow-up. Plan - Continue current medication regimen for BPH. - Prescribe proscar 5mg daily - Schedule follow-up PSA test in six months. - follow-up visit in 6 months, with PSA prior Results - Urinalysis: No blood, infection, or glucose detected - Ultrasound: Kidneys normal, prostate mild to moderately enlarged - PSA level: 3.22, decreased from 4 02/25/25--History of Present Illness The patient is a 70-year-old male presenting with management concerns regarding prostate health. His history reveals progressively increasing PSA levels recorded at 2.7 and 3.47 in 2020, with a recent measure of 3.25 in early 2022. Although these levels remain within the normal range, persistent elevation warrants further investigation to exclude benign prostatic hyperplasia or prostate malignancy. Approximately one month ago, he [place] for an enlarged prostate but did not recall the specific medication at this time. Current symptoms include nocturia with frequency reported as once per night since completing treatment. The urinary stream is described as relatively unchanged, indicating a stable condition post-treatment for benign prostatic hyperplasia. Urinary Symptoms Review - Nocturia, approximately once per night post-treatment. - Absence of significant urinary stream difficulties. - History of treatment for enlarged prostate in [place] approximately one month ago. Results - PSA levels: 2.7 (2020), 3.47 (2020), 3.25 (2022). [facility] Medical History Abdominal distention Class 1 obesity with body mass index (BMI) of 30.0 to 30.9 in adult Hypovitaminosis D Right knee pain Left knee pain Colon polyps Cervical stenosis of spine BPH (benign prostatic hyperplasia) Pure hypercholesterolemia GERD (gastroesophageal reflux disease) Surgical History History of esophagogastroduodenoscopy (EGD) History of umbilical hernia repair History of bunionectomy History of appendectomy Family History Father Diabetes Mother Hypertension Maternal Grandmother Diabetes Paternal Grandmother Stroke Social History Household Members: Family Household Members Other:: lives with mother Housing: House Alcohol intake: current Alcohol intake frequency: a few times a month Alcohol type: beer Patient Tobacco Use Status: Current someday Tobacco user e-Cigarette/Vaping Use: Never Used Second Hand Smoke Exposure: No service: No Current occupational status: retired 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 Cognitive needs: No Hearing needs: No Vision needs: No Review of Systems Const All systems reviewed & are unremarkable except as noted in HPI and below Reports no additional complaints Eyes Reports no additional complaints ENT Reports no additional complaints Card Reports no additional complaints Resp Reports no additional complaints GI Reports no additional complaints Reports as per HPI Musc Reports no additional complaints Skin/Breast Reports system reviewed and no additional complaints, except as documented Neuro Reports no additional complaints Psych Reports no additional complaints Endo Reports no additional complaints Roni/Lymph Reports no additional complaints Aller/Immun Reports no additional complaints Office Procedures Post Void Residual Post Residual Void Post Void Residual (PVR): 130 85001-Tayz Void Residual by ultrasound Results AMB Urinalysis, Automated UA Leukoctes 0 Gia/uL Last Edit by Patricia Youngertiz on 04/22/25 16:29 UA Nitrite Negative Last Edit by Patricia Youngertiz on 04/22/25 16:29 UA Urobilinogen 3.5 mg/dL Last Edit by Patricia Youngertiz on 04/22/25 16:29 UA Protein 0 mg/dL Last Edit by Patricia Youngertiz on 04/22/25 16:29 UA pH 7.5 Last Edit by Patricia Youngertiz on 04/22/25 16:29 UA Blood 0 Julio/uL Last Edit by Patricia Youngertiz on 04/22/25 16:29 UA Specific [place] 1.010 Last Edit by Patricia Youngertiz on 04/22/25 16:29 UA Ketone Negative Last Edit by Patricia Youngertiz on 04/22/25 16:29 UA Bilirubin 0 mg/dL Last Edit by Patricia Youngertiz on 04/22/25 16:29 UA Glucose 0 mg/dL Last Edit by Patricia Youngertiz on 04/22/25 16:29 Results Reviewed Results Reviewed: Date of Service: 04/15/25 US retroperitoneum Comparison: None Findings: Right kidney normal size and echotexture, 12.5 cm length. No hydronephrosis. Normal color flow. Left kidney normal size and echotexture, 12.0cm in length. No hydronephrosis. Normal color flow. Bilateral kidney cortex thickness and echotexture is normal. Urinary bladder is unremarkable. Prevoid volume 390mL. Postvoid volume mL is 127. Ureteral jets are visualized bilaterally The prostate is enlarged with volume of 46.6 mL. Impression: Prostate enlargement Otherwise normal retroperitoneal ultrasound Assessment & Plan Assessment & Plan (1) Elevated PSA: Code(s): R97.20 - Elevated prostate specific antigen [PSA] Category: Medical (2) BPH loc w urin obs/LUTS: Code(s): N40.1 - Benign prostatic hyperplasia with lower urinary tract symptoms Category: Medical Plan Plan - Continue current medication regimen for BPH. - Prescribe proscar 5mg daily - Schedule follow-up PSA test in six months. - follow-up visit in 6 months, with PSA prior Orders: Orders AMB Urinalysis Automated Today Z13.9 - Encounter for screening, unspecified AMB Post Void Residual by ultrasound Today N40.1 - Benign prostatic hyperplasia with lower urinary tract symptoms Medications: New finasteride (Proscar) 5 mg PO DAILY 90 tabs 3RF Patient Instructions: The patient had an opportunity to ask questions regarding treatment plan. The patient expressed understanding and agreement with the above treatment plan. The patient is aware they should contact our office by phone for worsening of their current condition or the appearance of new symptoms. Compliance is encouraged with any medications and followup testing that is ordered. It is a privilege to be allowed the opportunity to participate in the urologic care of your patient. If you have any questions or concerns regarding treatment for the above conditions please do not hesitate to contact me. The office telephone contact is [phone]. This note is constructed in part using voice recognition software. While every effort has been made to ensure accuracy top lifter errors may have been included. Yours sincerely, Paulino Dias MD Scribe Plan - Not visible on output: Patient was informed and verbally consented to the use of an ambient scribe for clinic note documentation during this visit. Coding Level of Care Code Est Pt Level 4 (97601) Diagnoses Elevated PSA R97.20 BPH loc w urin obs/LUTS N40.1 CPT Codes Post Residual Void - PVR CPT Code: 59223-Rnws Void Residual by ultrasound ([id number])
--- OUTSIDE RECORDS SUMMARY | 2025-04-22 15:03 | XMS_ITS | Patient Health Record ---
Author Organization [facility] Address [address] [place] [id number] Care Team Providers Care Business Development Executive Name Role Phone Dimple Mcbride Primary Care Provider Vitaly Lucero Unavailable [phone] Reason For Referral No Information Medications Medication [...] Problem Status W/U Status Risk Notes Problem [id number] Encounter for screening for malignant neoplasm of colon (Z12.11) Active confirmed Problem 908913732 History of colon polyps (Z86.010) Active confirmed Problem [id number] Pre-procedural examination (Z01.818) Active confirmed Plan Of Treatment Pending Test Test Name Order Date GI BIOPSY 09/25/2018 Future Test Test Name Order Date COLONOSCOPY 08/17/2018 Insurance Providers Payer Name Payer Address Payer Phone Subscriber Number Group Number Insured Name Patient Relationship to Insured Coverage Start Date Coverage End Date [facility] [address] [place] [phone] [id number] GLASGOWJANNETH MILLAN Self - patient is the insured MEDICARE OF [place] [address] [place] [phone] [id number] JANNETH GLASGOW Self - patient is the insured MEDICAID OF [facility] [address] [place] [phone] [id number] JANNETH GLASGOW Self - patient is the insured Medical (General) History Medical History History ICD Code Denies [place],DM,CVA,Lung disease,renal dise ase Colonoscopy approx 2006 at [facility] with removal of 3 polyps; F/U colonoscopy in 2010 at [facility] was negative--all by his report GERD--uses omeprazole prn Surgical History Surgery Date(Month/Year) Appendectomy 1974 Umbilical Hernia 1994
--- OUTSIDE RECORDS SUMMARY | 2025-04-22 15:03 | XMS_ITS | Encounter Summary ---
Author Organization [employer] [facility] Address [address] [place] [address] Care Team Providers Care Rd Project Manager Name Role Phone Unavailable Primary Care Provider Unavailabl e Encounter Details Date Type Department Care Team (Latest Contact Info) Description 06/13/2019 Abstract [facility] [place] CONVERSIONS Dental, Provider, DDS Social History Tobacco [...]
== END 2025-04-22 15:15 | disposition home or self-care (01) ==
LOC: HO.HUSH 13:51
PROVIDERS: PCP Internal Medicine; Visit Provider Urology
DX: Z13.9 Encounter for screening, unspecified (principal)

== ENCOUNTER → 2025-04-22 13:50 | Outpatient (BNVA) | payer MEDICARE, MEDICAID, SELFPAY | PROVIDERS: PCP Internal Medicine; Visit Provider Urology | DX: R97.20 Elevated prostate specific antigen [PSA] (principal); N40.1 Benign prostatic hyperplasia with lower urinary tract symptoms; N13.8 Other obstructive and reflux uropathy | CPT/HCPCS: 51798; 81003; 99212 ==

== ENCOUNTER 2025-05-03 07:06 | Outpatient (REF) | payer MEDICARE, SELFPAY ==
--- OUTSIDE RECORDS SUMMARY | 2025-05-03 07:09 | XMS_ITS | Encounter Summary ---
Author Organization [facility] Address [address] [place] [address] Care Team Providers Care Anesthesiology Resident Name Role Phone Unavailable Primary Care Provider Unavailabl e Encounter Details Date Type Department Care Team (Latest Contact Info) Description 06/13/2019 Abstract [facility] CONVERSIONS Dental, Provider, DDS Social History Tobacco [...]
--- OUTSIDE RECORDS SUMMARY | 2025-05-03 07:09 | XMS_ITS | Patient Health Record ---
Author Organization [facility] Address [address] [place] [id number] Care Team Providers Care Rubber Roller Grinder Operator Name Role Phone Dimple Mcbride Primary Care Provider Vitaly Lucero Unavailable [phone] Reason For Referral No Information Medications Medication [...] Problem Status W/U Status Risk Notes Problem [id number] Encounter for screening for malignant neoplasm of colon (Z12.11) Active confirmed Problem 231289065 History of colon polyps (Z86.010) Active confirmed Problem [id number] Pre-procedural examination (Z01.818) Active confirmed Plan Of Treatment Pending Test Test Name Order Date GI BIOPSY 09/25/2018 Future Test Test Name Order Date COLONOSCOPY 08/17/2018 Insurance Providers Payer Name Payer Address Payer Phone Subscriber Number Group Number Insured Name Patient Relationship to Insured Coverage Start Date Coverage End Date [facility] [address] [place] [address] [id number] GLASGOWJANNETH MILLAN Self - patient is the insured MEDICARE OF [place] [address] [place] [id number] JANNETH GLASGOW Self - patient is the insured MEDICAID OF [facility] [address] [place] [phone] [id number] JANNETH GLASGOW Self - patient is the insured Medical (General) History Medical History History ICD Code Denies [place],DM,CVA,Lung disease,renal dise ase Colonoscopy approx 2006 at [facility] with removal of 3 polyps; F/U colonoscopy in 2010 at [facility] was negative--all by his report GERD--uses omeprazole prn Surgical History Surgery Date(Month/Year) Appendectomy 1974 Umbilical Hernia 1994
[2025-05-03 07:23] LABS: MANUAL DIFF FLAG NO
[2025-05-03 07:56] LABS: Hematocrit 35.1 % (42.0-52.0); Hemoglobin 12.1 g/dl (14.0-18.0); Imm Gran Abs Auto 0.00 X10*3/uL (0.00-0.03); Imm Gran Pct Auto 0.0 % (0.0-0.4); Lymphocytes Absolute Auto 2.2 X10*3/uL (1.2-4.9); Mean Corpuscular HGB Conc 34.5 g/dl (31.0-36.0); Mean Corpuscular Hemoglobin 29.5 pg (27.0-33.0); Mean Corpuscular Volume 85.6 fL (80.0-98.0); NRBC Abs Auto 0.000 X10*3/uL (0.0-0.012); NRBC Pct Auto 0.0 /100WBC (0.0-0.2); Platelet Count 169 X10*3/uL (160-400); Red Blood Count 4.10 X10*6/uL (4.60-5.80); White Blood Count 5.1 X10*3/uL (4.8-10.8)
[2025-05-03 08:31] LABS: Iron 68 mcg/dL (45-160); Percent Iron Saturation 28 % (15-50); Total Iron Binding Capacity 243 mcg/dL (228-428); Unsaturated Iron Binding 175 ug/dL
[2025-05-03 08:38] LABS: PSA,Total (Free>4and<10) 3.56 ng/mL (0.00-4.00)
== END 2025-05-03 07:07 | disposition home or self-care (01) ==
LOC: HO.LAB 07:06
PROVIDERS: PCP Internal Medicine; Visit Provider Internal Medicine
DX: R35.1 Nocturia (principal); D64.9 Anemia, unspecified
CPT/HCPCS: 36415; 83540; 84153; 85025

== ENCOUNTER 2025-05-14 14:21 | Outpatient (AMB) | payer MEDICARE, SELFPAY ==
--- NOTE | 2025-05-14 14:26 | A.OFFVIS_ITS ---
Intake Vital Signs 05/14/25 14:27 Height 6 ft Weight 230 lb BMI 31.2 BP 122/86 Blood Pressure Location Lt brachial Position Sitting Intake Visit Reasons: AWV [id number] Accounting Machine Operator Required: No Accompanied by: Self / Same As Patient Allergies No Known Allergies Allergy (Verified 05/14/25 14:45) Medication List - Last Reconciled 05/14/25 by Dimple Wilde MD finasteride (Proscar) 5 mg PO DAILY pantoprazole 40 mg PO DAILY timolol maleate 0.5% 1 drp ophthalmic (eye) DAILY HPI HPI Comments History of Present Illness Details The patient is a 70-year-old male presenting for a Medicare annual wellness exam. His vaccines are up to date, including the pneumonia vaccine administered at age 65 and the Tdap vaccine in 2021. The patient has a history of anemia, with hemoglobin levels noted to be slightly low but stable over time. He is aware of his condition and understands the implications. The patient is currently on medications including finasteride for benign pro static hyperplasia, pantoprazole for gastric issues, and timolol for glaucoma. He has undergone several surgeries, including a bunionectomy, appendectomy, umbilical hernia repair, and endoscopy. Family history reveals that his father had diabetes, and his mother, who is still alive, has hypertension. The patient denies any history of smoking but admits to occasional alcohol consumption. The patient manages his daily activities independently, including bathing, dressing, and managing his finances. He reports no issues with incontinence and only urinates once at night. - Vaccinations: Pneumonia vaccine at age 65, Tdap in 2021 - Screening: Colonoscopy done 2023 but h ad poor prep and this needs to be repeated. [facility] Medical History (Updated 05/14/25 @ 15:03 by Dimple Wilde MD) Abdominal distention Class 1 obesity with body mass index (BMI) of 30.0 to 30.9 in adult Hypovitaminosis D Right knee pain Left knee pain Colon polyps Cervical stenosis of spine BPH (benign prostatic hyperplasia) Pure hypercholesterolemia GERD (gastroesophageal reflux disease) Surgical History History of esophagogastroduodenoscopy (EGD) History of umbilical hernia repair History of bunionectomy History of appendectomy Family History Father Diabetes Mother Hypertension Maternal Grandmother Diabetes Paternal Grandmother Stroke Social History (Updated 05/14/25 @ 14:52 by Dimple Wilde MD) Household Members: Family Household Members Other:: lives with mother Housing: House Alcohol intake: current Alcohol intake frequency: a few times a month Alcohol type: beer Patient Tobacco Use Status: Never used Tobacco e-Cigarette/Vaping Use: Never Used Second Hand Smoke Exposure: No service: No Current occupational status: retired 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 Cognitive needs: No Hearing needs: No Vision needs: No Questionnaire Medicare Wellness Checkup [age] What gender do you identify with?: male During the past 4 weeks, how much have you been bothered by emotional problems such as feeling anxious, depressed, irritable, sad or downhearted, and blue?: not at all During the past 4 weeks, has your physical & emotional health limited your social activities with family, friends, neighbors, or groups?: not at all During the past 4 weeks, how much bodily pain have you generally had?: mild pain During the past 4 weeks, was someone available to help you if you needed & wanted help?: no, not at all During the past 4 weeks, what was the hardest physical activity you could do for at least 2 minutes?: moderate Can you get to places out of walking distance without help? (For eg., can you travel alone on buses, taxis or drive your car?): Yes Can you go shopping for groceries or clothes without someone's help?: Yes Can you prepare your own meals?: Yes Can you do your housework without help?: Yes Because of any health problems, do you need the help of another person with your personal care needs such as eating, bathing, dressing or getting around the house?: No Can you handle your own money without help?: Yes During the past 4 weeks, how would you rate your health in general?: very good During the past 4 weeks how have things been going for you?: pretty well Are you having difficulties driving your car?: no Do you always fasten your seat belt when you are in a car?: yes, usually During past 4 weeks, have you been bothered by the following: never: Sexual problems?, Trouble eating well? and Problems using the telephone? and sometimes: Falling or dizzy when standing up, Teeth or denture problems? and Tiredness or fatigue? Have you fallen 2 or more times in the past year?: No Are you afraid of falling?: Yes Are you a smoker?: no During the past 4 weeks, how many drinks of wine, beer, or other alcoholic beverages did you have?: no alcohol at all Do you exercise for about 20 minutes 3 or more times a week?: yes, some of the time Have you been given information to help with the following?: no: Hazards in your house that might hurt you? and no: Keeping track of your medications? How often do you have trouble taking medicines the way you have been told to take them?: I always take medicine as prescribed How confident are you that you can control & manage most of your health problems?: very confident What is your race?: or origin or descent Mini Mental State Exam (MMSE) Orientation What is the (year) (season) (date) (day) (month)?: year, season, date, day and month Where are we (state) (county) (town or city) (hospital) (floor)?: state, county, town or city, hospital/clinic and floor Registration Name of 3 unrelated objects clearly and slowly, then ask patient to repeat all 3 of them. (1st repeat determines score. Make sure they can repeat all three): object 1, object 2 and object 3 Attention & Calculation (CHOOSE ONE) Spell WORLD backwards (DLROW): 5 letters Recall Ask patient to repeat the 3 items from question #3.: object 1, object 2 and object 3 Language Show patient a wristwatch & ask what it is. Repeat for pencil.: watch and pencil Ask the patient to repeat the phrase 'No ifs, ands, or buts' after you.: correct Ask the patient to 'take a piece of paper with their right hand' 'fold paper in half' 'place paper on floor': take paper in right hand, fold paper in half and place paper on floor Print the sentence 'CLOSE YOUR EYES' on a piece. If patient actually closes eyes then score.: followed written direction Give patient a blank piece of paper & ask to write a sentence. Score if it contains a noun & verb.: sentence contains subject and verb Ask patient to copy figure of intersecting pentagons exactly. Score if all 10 angles & 2 intersects are included.: all 10 angles present & 2 are intersected Score Score: 30 Activity of Daily Living Bathing - sponge bath, tub bath or shower: receives no assistance (gets in/out by self, if usual bathing means Dressing - getting clothes from closets & drawers, including inner/outer garments & fasteners.: gets clothes & gets completely dressed without help Toileting - going to the 'toilet room' for urine/bowel elimination & cleaning self/arranging clothes: goes to toilet room, cleans self, arranges clothes without help Transfer: moves in & out of bed and chair without help (may use support object) Continence: controls urination/bowel movements completely by self Feeding: feeds self without help Total Score: 0 Information obtained from: patient Using telephone: independent Traveling: independent Shopping: independent Preparing meals: independent Housework: independent Taking medicine: independent Managing money: independent PHQ-9 Over the last 2 weeks, how often have you been bothered by any of the following problems? 1. Little interest or pleasure in doing things: not at all 2. Feeling down, depressed, or hopeless: not at all 3. Trouble falling or staying asleep, or sleeping too much: not at all 4. Feeling tired or having little energy: not at all 5. Poor appetite or overeating: not at all 6. Feeling bad about yourself - or that you are a failure or have let yourself or your family down: not at all 7. Trouble concentrating on things, such as reading the newspaper or watching television: not at all 8. Moving or speaking so slowly that other people could have noticed. Or the opposite - being so fidgety or restless that you have been moving around a lot more than usual: not at all 9. Thoughts that you would be better off or of hurting yourself in some way: not at all Total score: 0 Depression Screening Interpretation: Negative Depression Screening Done: Yes 16996 - PHQ-9 Billing: Yes Source: Developed by Drs. Vitaly Wilson, Gia Reyes, Juan De Leon and colleagues, with an educational sho from [employer]. Fall Risk Assessment Fall Risk Assessment Fall risk assessment: No Falls in past year AUDIT C Alcohol Use Questionnaire (AUDIT-C) 1. How often do you have a drink containing alcohol?: 2-4 times a month 2. How many drinks containing alcohol do you have on a typical day when you are drinking?: 1 or 2 3. How often do you have six or more drinks on one occasion?: Never Total Score: 2 Score Reviewed/Action Taken: No ANNALISE-7 AMB Questionnaire ANNALISE-7 Date ANNALISE - 7 assessed: 05/14/25 Feeling nervous, anxious, or on edge: 0 = Not at all Not being able to stop or control worryin = Not at all Worrying too much about different things: 0 = Not at all Trouble relaxin = Not at all Being so restless that it is hard to sit still: 0 = Not at all Becoming easily annoyed or irritable: 0 = Not at all Feeling afraid as if something awful might happen: 0 = Not at all Total ANNALISE-7 score (0-4 normal; 5-9 mild; 10-14 moderate; 15-21 severe): 0 Source: Developed by Drs. Vitaly Wilson, Gia Reyes, Juan De Leon and colleagues, with an educational sho from [employer]. ANNALISE-7 Assessment Billing ANNALISE-7 Assessment Tool: ANNALISE-7 Assessment 89891 Thrive Questionnaire Date Thrive assessed: 12/27/24 Review of Systems Const All systems reviewed & are unremarkable except as noted in HPI and below Card Denies chest pain at rest, Denies chest pain with activity, Denies edema, Denies irregular heart rhythm, Denies claudication, Denies dyspnea, Denies dyspnea on exertion, Denies orthopnea, Denies paroxysmal nocturnal dyspnea and Denies slow heart rate Resp Denies cough, Denies dyspnea and Denies dyspnea on exertion Physical Exam Vital Signs: BMI result Body Mass Index 31.2 Resp Effort & Inspection: normal respiratory effort Auscultation: clear to auscultation bilaterally Cardio Jugular venous distension: no JVD Rate: regular rate Rhythm: regular rhythm Heart sounds: S1 normal heart sound present and S2 normal heart sound present Neuro General: no focal motor deficits Romberg Test: Negative Extrem General: Yes full ROM Assessment & Plan Assessment & Plan (1) Encounter for Medicare annual wellness exam: Code(s): Z00.00 - Encounter for general adult medical examination without abnormal findings Plan The patient's anemia will continue to be monitored, given its stability over time. Current medications for benign prostatic hyperplasia, gastric issues, and glaucoma will be maintained. A colonoscopy is recommended as part of preventative care measures. The patient is advised to continue with his current lifestyle, including managing his daily activities independently. Patient was informed and verbally consented to the use of an ambient scribe for clinic note documentation during this visit. Orders: Referrals Open Access Screening Colonoscopy Referral Z12.12 - Encounter for screening for malignant neoplasm of rectum Quality Reporting (2019) Fall Risk Screening ([facility] 139) Fall risk assessment: No Falls in past year Depression/Bipolar (159/160/161/177) PHQ-9: Total score: 0 Coding Level of Care Code Medicare First (G0438) Diagnoses Encounter for Medicare annual wellness exam Z00.00 Additional Codes ANNALISE-7 Assessment Billing - ANNALISE-7 Assessment Tool: ANNALISE-7 Assessment 68759 ([id number]) PHQ-9 - 36930 - PHQ-9 Billing: Yes ([id number]) Time Spent (min) 34 Advance Care Planning Did not discuss due to Cultural/Spiritual beliefs: Yes
[2025-05-14 14:27] VITALS: BP 122/86; BMI 31.2
--- OUTSIDE RECORDS SUMMARY | 2025-05-14 15:01 | XMS_ITS | Encounter Summary ---
Author Organization [facility] Address [address] [place] [address] Care Team Providers Care Sealing Machine Operator Name Role Phone Unavailable Primary Care Provider Unavailabl e Encounter Details Date Type Department Care Team (Latest Contact Info) Description 06/13/2019 Abstract [facility] CONVERSIONS Dental, Provider, DDS Social [...]
--- OUTSIDE RECORDS SUMMARY | 2025-05-14 15:01 | XMS_ITS | Patient Health Record ---
Author Organization [facility] Address [address] [place] [id number] Care Team Providers Care Social Media Senior Associate Name Role Phone Dimple Mcbride Primary Care Provider Vitaly Lucero Unavailable [phone] Reason For Referral No Information Medications Medication [...] Problem Status W/U Status Risk Notes Problem [id number] Encounter for screening for malignant neoplasm of colon (Z12.11) Active confirmed Problem [id number] History of colon polyps (Z86.010) Active confirmed Problem [id number] Pre-procedural examination (Z01.818) Active confirmed Plan Of Treatment Pending Test Test Name Order Date GI BIOPSY 09/25/2018 Future Test Test Name Order Date COLONOSCOPY 08/17/2018 Insurance Providers Payer Name Payer Address Payer Phone Subscriber Number Group Number Insured Name Patient Relationship to Insured Coverage Start Date Coverage End Date [facility] [address] [place] [phone] [id number] GLASGOWJANNETH MILLAN Self - patient is the insured MEDICARE OF [place] [address] [place] [id number] JANNETH GLASGOW Self - patient is the insured MEDICAID OF [facility] [address] [place] [phone] [id number] JANNETH GLASGOW Self - patient is the insured Medical (General) History Medical History History ICD Code Denies [place],DM,CVA,Lung disease,renal dise ase Colonoscopy approx 2006 at [facility] with removal of 3 polyps; F/U colonoscopy in 2010 at [facility] was negative--all by his report GERD--uses omeprazole prn Surgical History Surgery Date(Month/Year) Appendectomy 1974 Umbilical Hernia 1994
== END 2025-05-14 15:01 | disposition home or self-care (01) ==
LOC: HO.HMCH 14:21
PROVIDERS: PCP Internal Medicine; Visit Provider Internal Medicine
DX: Z00.00 Encounter for general adult medical examination without abnormal findings (principal)

== ENCOUNTER → 2025-05-14 14:21 | Outpatient (BNVA) | payer MEDICARE, SELFPAY | PROVIDERS: PCP Internal Medicine; Visit Provider Internal Medicine | DX: Z00.00 Encounter for general adult medical examination without abnormal findings (principal); E78.00 Pure hypercholesterolemia, unspecified; K21.9 Gastro-esophageal reflux disease without esophagitis | CPT/HCPCS: 96127 ==